=== PATIENT | male | born 1955 | race African-American/Black ===

== ENCOUNTER 2022-11-18 06:35 | Emergency (ER) | payer MEDICARE, SELFPAY ==
--- NOTE | ~2022-11-18 | CT_ITS ---
EXAMINATION: CT ABDOMEN AND PELVIS WITHOUT CONTRAST CLINICAL INFORMATION: Lower abdominal pain. COMPARISON: None available. TECHNIQUE: Multidetector volumetric imaging was performed from the superior aspect of the liver through the pubic symphysis. Sagittal and coronal reformatted images were obtained on the technologist's workstation. This CT examination was performed using dose optimization techniques as appropriate, variously including the following: *Automated exposure control *Adjustment of mA and/or kV according to patient size (this includes techniques or standardized protocols for targeted exams where dose is matched to indication/reason for exam; i.e. extremities or head) *Use of iterative reconstruction technique DLP: 454 mGy-cm FINDINGS: LUNG BASES: The visualized lung bases are unremarkable. LIVER, GALLBLADDER, AND BILIARY TREE: The noncontrast liver is normal in size and contour. No biliary ductal dilatation is present. The gallbladder is unremarkable with no evidence of radiopaque gallstones, gallbladder wall thickening, or obvious pericholecystic inflammatory changes. PANCREAS: No ductal dilatation. SPLEEN: Not enlarged. ADRENAL GLANDS: No adrenal mass. KIDNEYS AND URETERS: The kidneys are symmetric in size. No hydronephrosis or perinephric stranding. BLADDER: Diffuse wall thickening and perivesicular stranding. GASTROINTESTINAL TRACT: Submucosal fatty infiltration of the rectum. There is 2.9 x 1.2 cm soft tissue thickening along the right ischio rectal fossa/external anal sphincter. There is marked wall thickening of the sigmoid colon with pericolonic stranding and small pericolonic lymph nodes. There is marked fecal retention in the colon with possible stercoral inflammation. Appendix is within normal limits. No small bowel obstruction. ABDOMINAL WALL: Bilateral inguinal hernias containing fat. The left inguinal hernia appears larger with fluid and inflammatory changes. LYMPH NODES: No bulky abdominal or pelvic lymphadenopathy. VASCULAR: Normal caliber abdominal aorta. PELVIC VISCERA: The prostate gland and seminal vesicles are unremarkable. OSSEOUS STRUCTURES: No destructive bone lesions. CT/CT abdomen pelvis wo IV con IMPRESSION: Marked wall thickening of the sigmoid colon with pericolonic inflammatory change. This may represent colitis. Infectious and inflammatory etiologies should be considered. Follow-up imaging after treatment is advised to exclude underlying mass. Severe fecal retention in the colon with possible stercoral impaction/colitis. There is 2.9 x 1.2 cm soft tissue thickening along the right ischio rectal fossa/external anal sphincter. Diffuse wall thickening of the urinary bladder despite underdistention. Left inguinal hernia containing fat with associated fluid and inflammatory change. Advise clinical correlation for the possibility of incarceration.
[2022-11-18 06:40] VITALS: BP 122/79; PULSE 71; RESP 20; TEMP 37.1; O2SAT 97; BMI 24.2
[2022-11-18 07:02] LABS: MANUAL DIFF FLAG NO
[2022-11-18 07:04] LABS: Basophils Percent Auto 0.6 % (0-2); Eosinophils Absolute Auto 0.3 X10*3/uL (0.0-0.4); Eosinophils Percent Auto 4.1 % (0-4); Hematocrit 36.3 % (42.0-52.0); Hemoglobin 11.6 g/dl (14.0-18.0); Imm Gran Abs Auto 0.02 X10*3/uL (0.00-0.03); Imm Gran Pct Auto 0.3 % (0.0-0.4); Lymphocytes Absolute Auto 0.8 X10*3/uL (1.2-4.9); Lymphocytes Percent Auto 11.7 % (20-40); Mean Corpuscular Hemoglobin 29.4 pg (27.0-33.0); Mean Corpuscular Volume 91.9 fL (80.0-98.0); Mean Platelet Volume 8.8 fL (9.4-12.4); Monocytes Absolute Auto 0.8 X10*3/uL (0.1-1.2); Monocytes Percent Auto 12.7 % (2-11); Neutrophils Absolute Auto 4.5 x10*3/uL (2.0-8.3); Neutrophils Percent Auto 70.6 % (45-73); Platelet Count 311 X10*3/uL (160-400); Red Blood Count 3.95 X10*6/uL (4.60-5.80); Red Cell Distribution Width 13.5 % (11.0-16.0); White Blood Count 6.4 X10*3/uL (4.8-10.8)
[2022-11-18 07:20] LABS: Alanine Aminotransferase 12 U/L (0-40); Albumin Level 4.1 g/dL (3.5-5.0); Alkaline Phosphatase 70 U/L (39-117); Anion Gap 12 (12-20); Aspartate Amino Transferase 17 U/L (5-37); Bilirubin Direct 0.1 mg/dL (0.0-0.5); Bilirubin Total 0.3 mg/dL (0.0-1.0); Blood Urea Nitrogen 19 mg/dL (9-16); Calcium 9.4 mg/dL (8.4-10.2); Carbon Dioxide 23 mmol/L (22-29); Chloride 108 mmol/L (96-108); Creatinine Clr Calc Pharmacy 56.5; Estimated Glomerular Filt Rate > 60; Glucose Random 119 mg/dL (60-115); Lipase 38 U/L (8-78); Sodium 139 mmol/L (135-145); Total Protein 7.2 g/dL (6.5-8.0)
--- NOTE | 2022-11-18 11:41 | ED.ABDPAIN ---
HPI - Abdominal Pain General Chief Complaint: Abdominal Pain Stated Complaint: abdominal pain Time Seen by Provider: 11/18/22 11:40 Source: patient Limitations: no limitations History of Present Illness HPI narrative: 67-year-old male presents with abdominal pain. Symptoms started 2 weeks ago. He was in [place]. He reports having had an MRI which they found inflammation of the colon in constipation. He was prescribed ciprofloxacin and metronidazole. He has continued to have symptoms. Describes intermittent pain that is mild in nature. There is no clear relieving or exacerbating features but denies any fevers or chills. He has had soft stool but no diarrhea or constipation. Denies any blood in stools. He denies any acute urinary complaints. He has been compliant with medications. Related Data Previous Rx's Medication Instructions Recorded amoxicillin 875 mg-potassium 1 tab PO Q8H 10 days #30 tabs 11/18/22 clavulanate 125 mg tablet psyllium seed (sugar) oral powder 1 tbsp PO DAILY #1,254 grams 11/18/22 (Metamucil (sugar) oral powder) sennosides 8.6 mg tablet (senna) 8.6 mg PO BEDTIME #20 tabs 11/18/22 Allergies Allergy/AdvReac Type Severity Reaction Status Date / Time No Known Allergies Allergy Verified 11/18/22 06:38 Review of Systems Review of Systems CONSTITUTIONAL: Denies weight loss, fever and chills. HEENT: Denies changes in vision and hearing. RESPIRATORY: Denies SOB and cough. CV: Denies palpitations no CP. GI: + abdominal pain, -nausea, vomiting and diarrhea. : Denies dysuria and urinary frequency. MSK: Denies myalgia and joint pain. SKIN: Denies rash and pruritus. NEUROLOGICAL: Denies headache and syncope. PSYCHIATRIC: Denies recent changes in mood. Denies anxiety and depression. All other ROS are negative unless in HPI Physical Exam ED Vital Signs: Vital Signs - 24 hr 11/18/22 06:40 Temperature 98.7 F Pulse Rate 71 Respiratory Rate 20 Blood Pressure 122/79 Pulse Oximetry 97 Oxygen Delivery Method Room Air BMI result Body Mass Index 24.2 GEN: Well developed, no acute distress, alert, oriented HEENT: Normocephalic, atraumatic, normal external ears, nose appears normal, no oropharyngeal edema or exudates Eyes: Normal to appearance Neck: Supple, no lymphadenopathy Respiratory: Talks in complete sentences, no respiratory distress, clear to auscultation bilaterally Cardiovascular: Regular rate and rhythm, no murmurs rubs or gallops Abdomen: Soft, nontender, nondistended, no guarding, no rebound Back: No CVA tenderness Extremities: No clubbing cyanosis or edema Neurologic: No focal neurologic deficits, cranial nerves 2-12 intact, strength is 5/5 bilaterally Skin: No rash Course Course Course Narrative: The workup is complete. CT scan demonstrates evidence of colitis/diverticulitis with constipation. There is also a fat containing inguinal hernia. I discussed all reports the patient. Patient is currently on ciprofloxacin and metronidazole. Will switch him to Augmentin. Will refer him to Gastroenterology. He can follow up for any worsening or concerning symptoms. Medical Decision Making Medical Decision Making [facility] Narrative: Patient presents with lower abdominal pain. Differential diagnosis includes UTI, colitis, diverticulitis, constipation, gastroenteritis, IBD, IBS, malabsorption. Plan will be to obtain a CT scan the abdomen pelvis. Laboratory analysis and re-evaluate patient. Differential Diagnosis Differential Diagnoses: The differential diagnosis associated with the presentation includes (See above) Admission/Observation Consideration of admission/observation: Escalation of care including admission/observation considered Lab Data [facility] Lab Attestation statement: I reviewed the patient's lab results. 11/18/22 06:56 11/18/22 06:56 Labs: Lab Results 11/18/22 Range/Units 06:56 WBC 6.4 (4.8-10.8) X10*3/uL RBC 3.95 L (4.60-5.80) X10*6/uL Hgb 11.6 L (14.0-18.0) g/dl Hct 36.3 L (42.0-52.0) % MCV 91.9 (80.0-98.0) fL MCH 29.4 (27.0-33.0) pg MCHC 32.0 (31.0-36.0) g/dl RDW 13.5 (11.0-16.0) % Plt Count 311 (160-400) X10*3/uL MPV 8.8 L (9.4-12.4) fL Immature Gran % (Auto) 0.3 (0.0-0.4) % Neut % (Auto) 70.6 (45-73) % Lymph % (Auto) 11.7 L (20-40) % [place] % (Auto) 12.7 H (2-11) % Eos % (Auto) 4.1 H (0-4) % Baso % (Auto) 0.6 (0-2) % Lymph # (Auto) 0.8 L (1.2-4.9) X10*3/uL [place] # (Auto) 0.8 (0.1-1.2) X10*3/uL Eos # (Auto) 0.3 (0.0-0.4) X10*3/uL Baso # (Auto) 0.0 (0.0-0.2) X10*3/uL Abs Immat Gran (auto) 0.02 (0.00-0.03) X10*3/uL Absolute Neuts (auto) 4.5 (2.0-8.3) x10*3/uL Absolute Nucleated RBC 0.000 (0.0-0.012) X10*3/uL Nucleated RBC % (auto) 0.0 (0.0-0.2) /100WBC Sodium 139 (135-145) mmol/L Potassium 4.0 (3.3-5.1) mmol/L Chloride 108 (96-108) mmol/L Carbon Dioxide 23 (22-29) mmol/L Anion Gap 12 (12-20) BUN 19 H (9-16) mg/dL Creatinine 1.16 (0.5-1.4) mg/dL Estim Creat Clear Calc 56.5 Estimated GFR > 60 Random Glucose 119 H (60-115) mg/dL Calcium 9.4 (8.4-10.2) mg/dL Total Bilirubin 0.3 (0.0-1.0) mg/dL Direct Bilirubin 0.1 (0.0-0.5) mg/dL AST 17 (5-37) U/L ALT 12 (0-40) U/L Alkaline Phosphatase 70 (39-117) U/L Total Protein 7.2 (6.5-8.0) g/dL Albumin 4.1 (3.5-5.0) g/dL Lipase 38 (8-78) U/L Independent Interpretation I performed an independent interpretation of an: CT Scan (Abdomen pelvis: Evidence of colitis) Radiology Impression Discussion of test interpretation with radiology: I have reviewed the radiologist's reading. Radiologist Impression: CT/CT abdomen pelvis wo IV con IMPRESSION: Marked wall thickening of the sigmoid colon with pericolonic inflammatory change. This may represent colitis. Infectious and inflammatory etiologies should be considered. Follow-up imaging after treatment is advised to exclude underlying mass. Severe fecal retention in the colon with possible stercoral impaction/colitis. There is 2.9 x 1.2 cm soft tissue thickening along the right ischio rectal fossa/external anal sphincter. Diffuse wall thickening of the urinary bladder despite underdistention. Left inguinal hernia containing fat with associated fluid and inflammatory change. Advise clinical correlation for the possibility of incarceration. Dictated By: Kevon Dwyer MD Signed By: <Electronically signed by Kevon Dwyer MD in OV> 11/18/22 0958 External Record Review External record reviewed: Inpatient record, Office record, Outpatient record and Prior outpatient labs Prescription Management I considered prescription management with: Pain Medication and Antibiotic Chronic Conditions Patient?s care impacted by: Other (BPH) Discharge Plan Discharge Clinical Impression: Diverticulitis, Constipation Inguinal hernia Qualifiers: Obstruction and gangrene presence: without obstruction or gangrene Laterality: unilateral Recurrence: not specified as recurrent Qualified Code(s): K40.90 - Unilateral inguinal hernia, without obstruction or gangrene, not specified as recurrent Patient Disposition: Home, Self-Care Instructions: Diverticulitis (ED), Constipation (ED), High Fiber Diet (ED), Inguinal Hernia (ED) Prescriptions: New amoxicillin-pot clavulanate 875-125 mg tablet 1 tab PO Q8H 10 Days Qty: 30 0RF Metamucil (sugar) Powder 1 tbsp PO DAILY Qty: 1254 0RF sennosides [senna] 8.6 mg tablet 8.6 mg PO BEDTIME Qty: 20 0RF Referrals: Ney Neal MD [Physician] - 2 weeks Stand Alone Forms: Work/School Release
--- NOTE | 2022-11-18 12:48 | PC.NURSE ---
Discharge plan reviewed with patient via brick mason who verbalized understanding
== END 2022-11-18 12:49 | disposition home or self-care (01) ==
LOC: HO.ED 12:30
PROVIDERS: Emergency Provider Emergency Medicine
DX: K57.32 Diverticulitis of large intestine without perforation or abscess without bleeding (principal); K59.00 Constipation, unspecified; K40.90 Unilateral inguinal hernia, without obstruction or gangrene, not specified as recurrent; Z79.899 Other long term (current) drug therapy
CPT/HCPCS: 36415; 74176; 80048; 80076; 83690; 85025; 99282; 99284

== ENCOUNTER 2023-10-18 13:45 | Inpatient (IN) | payer MEDICARE, SELFPAY ==
--- NOTE | ~2023-10-18 | CT_ITS ---
EXAMINATION: CT ABDOMEN AND PELVIS WITH CONTRAST CLINICAL INFORMATION: Abdominal pain COMPARISON: CT abdomen and pelvis without IV contrast 11/18/2022 TECHNIQUE: Multidetector volumetric images were obtained from the superior aspect of the liver through the pubic symphysis following administration 85 mL of Omnipaque 350 intravenous contrast. Sagittal and coronal reformatted images were obtained on the technologist's workstation. Oral contrast: No This CT examination was performed using dose optimization techniques as appropriate, variously including the following: *Automated exposure control *Adjustment of mA and/or kV according to patient size (this includes techniques or standardized protocols for targeted exams where dose is matched to indication/reason for exam; i.e. extremities or head) *Use of iterative reconstruction technique DLP: 376 mGy-cm FINDINGS: LUNG BASES: The visualized lung bases are unremarkable. LIVER, GALLBLADDER, AND BILIARY TREE: The liver is normal in size, shape, and attenuation. No focal hepatic lesion or biliary ductal dilatation is present. The gallbladder is unremarkable with no evidence of radiopaque gallstones, gallbladder wall thickening, or obvious pericholecystic inflammatory changes. PANCREAS: Unremarkable. SPLEEN: Unremarkable. ADRENAL GLANDS: Unremarkable. KIDNEYS AND URETERS: The kidneys are normal in size, shape, and attenuation. No hydronephrosis, hydroureter, or calculi seen. No perinephric stranding. BLADDER: Unremarkable. GASTROINTESTINAL TRACT: There is diffuse mural thickening involving the descending, sigmoid colon and rectum with pericolonic fat stranding suggestive of descending and proctoscopy colitis. There are multiple dilated small bowel loops with air fluid level with normal caliber right ileal loop. The transition appears in the right lower quadrant on coronal image 29/81 and axial image 53/2. There is minimal thickening involving the distal ileal segment likely enteritis. ABDOMINAL WALL: There is a right mid quadrant ileostomy with periileostomy fat herniation.. LYMPH NODES: There are large left para-aortic lymph nodes measure 1.7 and 1.8 cm. Best visualized on axial image 31/2. VASCULAR: Unremarkable. PELVIC VISCERA: No free fluid. There is a small air-fluid level in distended rectum and sigmoid colon with mural thickening. There is nonspecific presacral soft tissue thickening slightly more prominent and new since the previous exam 11/18/2012 OSSEOUS STRUCTURES: No aggressive lytic or sclerotic process seen. There is mild ventral spondylosis in the dorsal spine. CT/CT abdomen pelvis w IV con IMPRESSION: Right lower quadrant ileostomy with mural thickening involving distal ileum segment likely enteritis. This causes moderate proximal small bowel obstruction with air-fluid levels. No free air or free fluid seen. There is diffuse mural thickening involving the descending, sigmoid colon and the rectum likely proctocolitis from inflammatory or infectious process. There is moderate stool distending ascending colon. Abnormal left retroperitoneal lymph nodes Fleischner guidelines were followed. Electronically signed by: Peter Byrd MD 10/18/2023 08:29 PM EDT
[2023-10-18 14:13] VITALS: BP 117/87; BP 139/93; PULSE 100; PULSE 110; RESP 18; TEMP 36.6; O2SAT 96; O2SAT 98; BMI 20.5
--- NOTE | 2023-10-18 14:29 | ED.ABDPAIN ---
HPI - Abdominal Pain General Chief Complaint: Abdominal Pain Stated Complaint: ABD PAIN, DECREASED URINE OUTPUT, FRM HOME Time Seen by Provider: 10/18/23 13:53 History of Present Illness HPI narrative: Patient is a 68-year-old male with a history of colon cancer status post resection last January in [place] was on chemotherapy up until June. Patient can not tolerate than subsequently stopped. He has a colostomy in place. Complaining of pain in the suprapubic area. Unable to urinate. No fever no chills. No chest pain. No change in medication. No vomiting or nausea. There is good output from the ostomy site. Patient is from home. No coughing or congestion or upper respiratory symptoms. Patient is visiting from [place] and is going back in about a week Related Data Previous Rx's ?Medication ?Instructions ?Recorded amoxicillin 875 mg-potassium 1 tab PO Q8H 10 days #30 tabs 11/18/22 clavulanate 125 mg tablet psyllium seed (sugar) oral powder 1 tbsp PO DAILY #1,254 grams 11/18/22 (Metamucil (sugar) oral powder) sennosides 8.6 mg tablet (senna) 8.6 mg PO BEDTIME #20 tabs 11/18/22 Allergies Allergy/AdvReac Type Severity Reaction Status Date / Time No Known Allergies Allergy Verified 10/18/23 15:01 Review of Systems Review of Systems No fever no chills no chest pain or shortness of breath Yes all other systems are reviewed and are negative PMFSH Past Medical History Attestation statement: The following information was validated with the patient. Social History Social History (System 10/18/23 @ 15:01 by Masha Rojas) Smoked in Last 30 Days: No Use of substances other than those prescribed or required for medical reasons: No Advance Directives: No Advance Directives Information Provided: Yes Do you have a plan to hurt others: No Plan Physical Exam ED Vital Signs: Vital Signs - 24 hr 10/18/23 14:13 Temperature 98 F Pulse Rate 100 Respiratory Rate 18 Blood Pressure 117/87 Pulse Oximetry 98 Oxygen Delivery Method Room Air BMI result Body Mass Index 20.5 Appearance: Alert. Oriented X3. No acute distress. Eyes: Pupils equal, round and reactive to light. ENT: Pharynx normal. Neck: Normal inspection. Neck supple. No lymph nodes noted. No crepitus CVS: Normal heart rate and rhythm. Pulses normal. Normal S1 and S2 Respiratory: No respiratory distress. Breath sounds normal. No Wheezing. No rales Abdomen: Soft and nontender. No rigidity. No distention. good BS x4 Skin: Skin warm and dry. Normal skin color. Normal skin turgor. Extremities: No lower extremity edema. Neurovascular intact to all extremities. No Lacerations. No Rash Neuro: Oriented X 3. No motor deficit. No sensory deficit. Moving all extermities. No slurred speech Medical Decision Making Medical Decision Making [facility] Narrative: History of colon cancer presents today with having abdominal pain. The pain is over the lower abdomen. Has a history of having a large prostate baseline is on prostate medicine. Also has a history of colon cancer status post resection in [place] back in January. Had chemo for 5 months but then patient elected to stop on his own. Came to [facility] to visit. Patient complaining of increasing pain unable to urinate. No vomiting. A bladder scan showed over 350 cc of urine will ask patient to urinate again. If residual was greater than [address] scan and labs ordered. Patient also on tramadol he claims he had been taking the medication for long-term Differential Diagnosis Differential Diagnoses: The differential diagnosis associated with the presentation includes Obstruction abscess perforation urinary retention Admission/Observation Consideration of admission/observation: Escalation of care including admission/observation considered Lab Data [facility] Lab Attestation statement: I reviewed the patient's lab results. 10/18/23 14:42 10/18/23 14:42 Labs: Lab Results 10/18/23 Range/Units 14:42 WBC 10.8 (4.8-10.8) X10*3/uL RBC 4.22 L (4.60-5.80) X10*6/uL Hgb 13.2 L (14.0-18.0) g/dl Hct 39.5 L (42.0-52.0) % MCV 93.6 (80.0-98.0) fL MCH 31.3 (27.0-33.0) pg MCHC 33.4 (31.0-36.0) g/dl RDW 14.0 (11.0-16.0) % Plt Count 309 (160-400) X10*3/uL MPV 7.9 L (9.4-12.4) fL Immature Gran % (Auto) 0.3 (0.0-0.4) % Neut % (Auto) 82.8 H (45-73) % Lymph % (Auto) 8.5 L (20-40) % [place] % (Auto) 7.0 (2-11) % Eos % (Auto) 1.0 (0-4) % Baso % (Auto) 0.4 (0-2) % Lymph # (Auto) 0.9 L (1.2-4.9) X10*3/uL [place] # (Auto) 0.8 (0.1-1.2) X10*3/uL Eos # (Auto) 0.1 (0.0-0.4) X10*3/uL Baso # (Auto) 0.0 (0.0-0.2) X10*3/uL Abs Immat Gran (auto) 0.03 (0.00-0.03) X10*3/uL Absolute Neuts (auto) 8.9 H (2.0-8.3) x10*3/uL Absolute Nucleated RBC 0.000 (0.0-0.012) X10*3/uL Nucleated RBC % (auto) 0.0 (0.0-0.2) /100WBC Sodium 139 (135-145) mmol/L Potassium 3.9 (3.3-5.1) mmol/L Chloride 102 (96-108) mmol/L Carbon Dioxide 28 (22-29) mmol/L Anion Gap 13 (12-20) BUN 11 (9-16) mg/dL Creatinine 0.84 (0.5-1.4) mg/dL Estim Creat Clear Calc 69.4 Estimated GFR > 60 Random Glucose 116 H (60-115) mg/dL Calcium 10.6 H D (8.4-10.2) mg/dL Total Bilirubin 0.3 (0.0-1.0) mg/dL Direct Bilirubin 0.1 (0.0-0.5) mg/dL AST 29 (5-37) U/L ALT 18 (0-40) U/L Alkaline Phosphatase 73 (39-117) U/L Total Protein 8.4 H (6.5-8.0) g/dL Albumin 4.5 (3.5-5.0) g/dL Lipase 31 (8-78) U/L Independent Historian Clinical information obtained from an independent historian. History obtained from or confirmed by: Spouse Medications Administered Discontinued Medications Generic Name Dose Route Start Last Admin Trade Name Freq PRN Reason Stop Dose Admin Hydromorphone HCl 0.5 mg 10/18/23 14:16 10/18/23 14:46 Hydromorphone Hcl 0.5 Mg/0.5 Ml Syringe IVPUSH 10/18/23 14:17 0.5 mg ONCE ONE Administration Protocol Sodium Chloride 1,000 mls @ 999 mls/hr 10/18/23 14:30 10/18/23 14:47 Ns IV 10/18/23 15:30 999 mls/hr .Q1H1M KAEL Administration Discharge Plan Discharge Clinical Impression: Abdominal pain Patient Disposition: Still a Patient Prescriptions: No Action amoxicillin-pot clavulanate 875-125 mg tablet 1 tab PO Q8H 10 Days Qty: 30 0RF Metamucil (sugar) Powder 1 tbsp PO DAILY Qty: 1254 0RF sennosides [senna] 8.6 mg tablet 8.6 mg PO BEDTIME Qty: 20 0RF Print Language: German
[2023-10-18 14:45] LABS: MANUAL DIFF FLAG NO
[2023-10-18] MEDS: HYDROmorphone HCl 0.5 MG/0.5 ML SYRINGE IVPUSH (14:46)
[2023-10-18 14:47] LABS: Basophils Percent Auto 0.4 % (0-2); Eosinophils Absolute Auto 0.1 X10*3/uL (0.0-0.4); Hematocrit 39.5 % (42.0-52.0); Hemoglobin 13.2 g/dl (14.0-18.0); Imm Gran Abs Auto 0.03 X10*3/uL (0.00-0.03); Imm Gran Pct Auto 0.3 % (0.0-0.4); Lymphocytes Absolute Auto 0.9 X10*3/uL (1.2-4.9); Lymphocytes Percent Auto 8.5 % (20-40); Mean Corpuscular HGB Conc 33.4 g/dl (31.0-36.0); Mean Corpuscular Hemoglobin 31.3 pg (27.0-33.0); Mean Corpuscular Volume 93.6 fL (80.0-98.0); Mean Platelet Volume 7.9 fL (9.4-12.4); Monocytes Absolute Auto 0.8 X10*3/uL (0.1-1.2); Neutrophils Absolute Auto 8.9 x10*3/uL (2.0-8.3); Neutrophils Percent Auto 82.8 % (45-73); Platelet Count 309 X10*3/uL (160-400); Red Blood Count 4.22 X10*6/uL (4.60-5.80); White Blood Count 10.8 X10*3/uL (4.8-10.8)
[2023-10-18] MEDS: 0.9 % Sodium Chloride 1,000 ML 999 ML IV (14:47)
[2023-10-18 15:11] LABS: Lipase 31 U/L (8-78)
[2023-10-18 15:22] LABS: Alanine Aminotransferase 18 U/L (0-40); Albumin Level 4.5 g/dL (3.5-5.0); Alkaline Phosphatase 73 U/L (39-117); Anion Gap 13 (12-20); Aspartate Amino Transferase 29 U/L (5-37); Bilirubin Direct 0.1 mg/dL (0.0-0.5); Bilirubin Total 0.3 mg/dL (0.0-1.0); Blood Urea Nitrogen 11 mg/dL (9-16); Calcium 10.6 mg/dL (8.4-10.2); Carbon Dioxide 28 mmol/L (22-29); Chloride 102 mmol/L (96-108); Creatinine Clr Calc Pharmacy 69.4; Estimated Glomerular Filt Rate > 60; Glucose Random 116 mg/dL (60-115); Potassium 3.9 mmol/L (3.3-5.1); Sodium 139 mmol/L (135-145); Total Protein 8.4 g/dL (6.5-8.0)
[2023-10-18 16:20] LABS: Appearance Urine Clear; Color Urine Dark Yellow; Glucose Urine UA Negative (Negative); Leukocyte Esterase Urine Negative (Negative); Nitrite Urine Negative (Negative); PH 6.5 (5.0-9.0); Urine Blood Negative (Negative); Urine Ketones Trace mg/dL (Negative); Urine Protein Trace mg/dL (Neg-Trace)
[2023-10-18 16:23] LABS: Bacteria Urine None Seen (None Seen); Hyaline Casts Urine 0-2 /LPF (0-2); RBC Urine 0-2 /HPF (0-2); Squamous Epithelial Cell Urine 0-2 /HPF (0-2); WBC Urine 0-5 /HPF (0-5)
--- NOTE | 2023-10-18 16:25 | PC.NURSE ---
pre void bladder scan 376
--- NOTE | 2023-10-18 16:26 | PC.NURSE ---
pt able to void a small amount 80cc - post void visidual 207
[2023-10-18] MEDS: Diatrizoate Meglumine, Sodium 30 ML SOLUTION PO (17:05)
[2023-10-18] MEDS: iohexoL 350 MG/ML 100 ML INFUS..BTL IV (17:05)
[2023-10-18 17:25] VITALS: BP 127/83; PULSE 99; RESP 16; TEMP 36.7; O2SAT 99
[2023-10-18 22:00] VITALS: BP 122/81; PULSE 95; RESP 16; TEMP 37.2; O2SAT 97
[2023-10-19] VITALS (10 sets, daily range): BP systolic 118–140; BP diastolic 72–87; PULSE 80–97; RESP 15–18; TEMP 36.5–37.3; O2SAT 97–98
[2023-10-19 00:35] LABS: Lactic Acid 1.3 mmol/L (0.5-2.0)
[2023-10-19] MEDS: ondansetron HCL 4 MG/2 ML VIAL IVPUSH ×2 (00:50→09:50)
[2023-10-19] MEDS: Morphine Sulfate 4 MG/ML CARTRIDGE IVPUSH ×5 (00:50→21:43)
[2023-10-19] MEDS: 0.9 % Sodium Chloride 1,000 ML 999 ML IV (00:50)
--- NOTE | 2023-10-19 01:16 | P.HPHOSP_ITS ---
History of Present Illness Date of Service: 10/19/23 Chief Complaint: Abdominal pain This is a 68-year-old male with pertinent history of colon cancer status post colostomy, BPH who presents to the emergency department for evaluation of abdominal pain. Patient states he stopped chemotherapy in June of 2023 as he could not tolerate chemotherapy. Patient is supposed to take a medication for his enlarged prostate but is not taking it. Patient is complaining of lower abdominal discomfort that has been ongoing for a while but worsened on the day of presentation, constant, nonradiating and without any relieving factors. Patient tried Tylenol and tramadol at home but no relief. Also had difficulty with urination. Denies nausea or vomiting. Reduced p.o. intake due to abdominal pain. Patient is visiting from [place]. No chest pain, palpitations, shortness of breath. In the emergency department, imaging with enteritis. Also concerning for small bowel obstruction. Holguin catheter was placed in the ER. Review of Systems 2 Constitutional: Constitutional: Reports poor appetite Cardiovascular: Cardiovascular: Reports no additional cardiovascular complaints Respiratory: Respiratory: Reports no additional respiratory complaints Gastrointestinal: Gastrointestinal: Reports abdominal pain Genitourinary: Genitourinary: Reports difficulty urinating [facility] Medical History BPH (benign prostatic hyperplasia) Colon cancer Pertinent family history: No family history of early CAD Social History Smoked in Last 30 Days: No Use of substances other than those prescribed or required for medical reasons: No Advance Directives: No Advance Directives Information Provided: Yes Do you have a plan to hurt others: No Plan Meds Allergies Allergy/AdvReac Type Severity Reaction Status Date / Time No Known Allergies Allergy Verified 10/18/23 15:01 Physical Exam 2 Vital Signs and Narrative: Vital Signs: Last Vital Signs Temp 98.7 F 10/19/23 00:47 Pulse 97 10/19/23 00:47 Resp 15 10/19/23 00:50 BP 125/80 10/19/23 00:47 Pulse Ox 97 10/19/23 00:47 O2 Del Method Room Air 10/19/23 00:47 BMI result Body Mass Index 20.5 Middle-aged male lying in bed in no distress Neck supple, no JVD Regular rate and rhythm, S1-S2 heard Regular breath sounds bilaterally, no wheezing or crackles appreciated Abdomen with lower abdominal tenderness, no rigidity, no rebound tenderness ; colostomy in place Patient is awake, alert and oriented to self, place, time and person ; no focal motor deficit Psych: Normal mood No pedal edema Results Labs 10/18/23 14:42 10/18/23 14:42 Labs: Laboratory Results - last 24 hr 10/18/23 10/18/23 10/19/23 14:42 16:14 00:22 MCV 93.6 MCH 31.3 MCHC 33.4 RDW 14.0 Plt Count 309 MPV 7.9 L Immature Gran % (Auto) 0.3 Neut % (Auto) 82.8 H Lymph % (Auto) 8.5 L [place] % (Auto) 7.0 Eos % (Auto) 1.0 Baso % (Auto) 0.4 Lymph # (Auto) 0.9 L [place] # (Auto) 0.8 Eos # (Auto) 0.1 Baso # (Auto) 0.0 Abs Immat Gran (auto) 0.03 Absolute Neuts (auto) 8.9 H Absolute Nucleated RBC 0.000 Nucleated RBC % (auto) 0.0 Anion Gap 13 Estim Creat Clear Calc 69.4 Estimated GFR > 60 Random Glucose 116 H Lactic Acid 1.3 Calcium 10.6 H D Total Bilirubin 0.3 Direct Bilirubin 0.1 AST 29 ALT 18 Alkaline Phosphatase 73 Total Protein 8.4 H Albumin 4.5 Lipase 31 Urine Color Dark Yellow Urine Appearance Clear Urine pH 6.5 Ur Specific [place] 1.020 Urine Protein Trace Urine Glucose (UA) Negative Urine Ketones Trace Urine Blood Negative Urine Nitrite Negative Ur Leukocyte Esterase Negative Urine RBC 0-2 Urine WBC 0-5 Ur Squamous Epith Cells 0-2 Urine Bacteria None Seen Hyaline Casts 0-2 Imaging Radiologist's Impressions: Impressions Abdomen/Pelvis CT 10/18/23 17:12 IMPRESSION: Right lower quadrant ileostomy with mural thickening involving distal ileum segment likely enteritis. This causes moderate proximal small bowel obstruction with air-fluid levels. No free air or free fluid seen. There is diffuse mural thickening involving the descending, sigmoid colon and the rectum likely proctocolitis from inflammatory or infectious process. There is moderate stool distending ascending colon. Abnormal left retroperitoneal lymph nodes Fleischner guidelines were followed. Electronically signed by: Peter Rochelle MD 10/18/2023 08:29 PM EDT RP Assessment and Plan (1) Abdominal pain: Status: Acute (2) Difficulty urinating: Status: Acute Plan This is a 68-year-old male with pertinent history of colon cancer status post colostomy, BPH who presents to the emergency department for evaluation of abdominal pain. #. Abdominal pain, intractable with reduced p.o. intake: Will admit patient with IV opioids p.r.n. for analgesia. Clear liquid diet and advance as tolerated. Imaging with enteritis and moderate proximal SBO. Consulted General surgery, appreciate assistance. #. Difficulty urinating: Holguin catheter placed in the ER. Noncompliant with medication for enlarged prostate as per the patient. Initiating Flomax. Voiding trial prior to discharge. DVT prophylaxis: Lovenox Full code Quality Stroke Does the patient have a stroke diagnosis?: No VTE Prior VTE?: No VTE Risk Level:: Medical - moderate - high VTE Device Contraindication: Treatment Not Indicated VTE Drug Contraindication: N/A - Med Ordered
[2023-10-19 01:48] LABS: CDiff Gene PCR NEGATIVE (Negative)
[2023-10-19] MEDS: Tamsulosin HCL 0.4 MG CAPSULE PO ×2 (02:29→21:39)
[2023-10-19] MEDS: Calcium Carbonate 750 MG TAB.CHEW PO ×2 (04:48→18:53)
--- NOTE | 2023-10-19 05:10 | PC.NURSE ---
Patient is alert and oriented x3, VSS. Patient denies nausea, vomiting. He complaints of heartburn and 7/10 pain in lower abdomen. Patient medicated medicated with Tums 750 mg PO and Morphine 4 mg IV push. Patient is independent with ostomy appliance care. Patient emptied ostomy pouch with approximately 300 mL of yellow, watery output. F/C patient draining yellow, clear urine. Patient is on clear liquid diet, he verbalized understanding. Plan of care ongoing.
[2023-10-19 05:51] LABS: MANUAL DIFF FLAG NO
[2023-10-19 05:56] LABS: Basophils Absolute Auto 0.1 X10*3/uL (0.0-0.2); Basophils Percent Auto 0.5 % (0-2); Eosinophils Absolute Auto 0.1 X10*3/uL (0.0-0.4); Eosinophils Percent Auto 0.9 % (0-4); Hematocrit 36.5 % (42.0-52.0); Hemoglobin 12.1 g/dl (14.0-18.0); Imm Gran Abs Auto 0.01 X10*3/uL (0.00-0.03); Imm Gran Pct Auto 0.1 % (0.0-0.4); Lymphocytes Absolute Auto 0.7 X10*3/uL (1.2-4.9); Lymphocytes Percent Auto 7.2 % (20-40); Mean Corpuscular HGB Conc 33.2 g/dl (31.0-36.0); Mean Corpuscular Hemoglobin 31.3 pg (27.0-33.0); Mean Corpuscular Volume 94.3 fL (80.0-98.0); Mean Platelet Volume 8.3 fL (9.4-12.4); Monocytes Absolute Auto 1.1 X10*3/uL (0.1-1.2); Monocytes Percent Auto 11.4 % (2-11); Neutrophils Percent Auto 79.9 % (45-73); Platelet Count 304 X10*3/uL (160-400); Red Blood Count 3.87 X10*6/uL (4.60-5.80); Red Cell Distribution Width 14.2 % (11.0-16.0)
[2023-10-19 06:11] LABS: Anion Gap 14 (12-20); Blood Urea Nitrogen 14 mg/dL (9-16); Calcium 9.7 mg/dL (8.4-10.2); Carbon Dioxide 25 mmol/L (22-29); Chloride 105 mmol/L (96-108); Creatinine Clr Calc Pharmacy 64.7; Estimated Glomerular Filt Rate > 60; Glucose Random 131 mg/dL (60-115); Potassium 4.4 mmol/L (3.3-5.1); Sodium 140 mmol/L (135-145)
--- NOTE | 2023-10-19 08:48 | PC.NURSE ---
Pt eating meal tray, denies complaints.
--- NOTE | 2023-10-19 09:13 | PC.NURSE ---
Surgery at bedside to evaluate pt.
--- NOTE | 2023-10-19 09:24 | PM.CNGS ---
History of Present Illness Consult details Consult date: 10/19/23 <PRICILA Padron Last Filed: 10/19/23 09:44> Reason for consult: abdominal pain <PRICILA Padron Last Filed: 10/19/23 09:44> Narrative: Mr. Artis is a 68-year-old armenian speaking male with PMH significant for colon cancer with ileostomy in place, BPH who presents to the ED for evaluation of abdominal pain. He reports this pain is mostly in the central lower abdomen and has been present for months and however he did develop some mild upper abdominal discomfort on the day of presention. From patient history, it sounds like resection was attempted in [place] however they were unable to and therefore loop ileostomy was performed as he was obstructing. He was undergoing chemotherapy in [place] however stopped in June of 2023 as he could not tolerate it. He also reports some difficulty with urination and is supposed to take a medication for his enlarged prostate but has not been taking it. He reports poor oral intake due to his pain and weight loss but denies nausea or vomiting. His ostomy has been functioning without change in output. Work up in the ED included CBC, BMP, LFTs which were WNL. CT scan abd pelvis showed distended stomach, dilated small bowel loops with thickening and diffuse mural thickening involving the descending, sigmoid colon and rectum with pericolonic fat stranding. <PRICILA Padron Last Filed: 10/19/23 09:44> Review of Systems Constitutional: Constitutional: Denies chills and Denies fever(s) <PRICILA Padron Last Filed: 10/19/23 09:44> ENT: Denies dizziness <PRICILA Padron Last Filed: 10/19/23 09:44> Cardiovascular: Cardiovascular: Denies chest pain and Denies dyspnea <PRICILA Padron Last Filed: 10/19/23 09:44> Respiratory: Respiratory: Denies dyspnea <PRICILA Padron Last Filed: 10/19/23 09:44> Gastrointestinal: Gastrointestinal: Reports as per HPI, Denies melena and Denies hematochezia <Natacha Lopez PA-C Last Filed: 10/19/23 09:44> Genitourinary: Genitourinary: Reports as per HPI <Natacha Lopez PA-C Last Filed: 10/19/23 09:44> Integumentary/Breasts: Skin/Breast: Denies rash and Denies jaundice <Natacha Lopez PA-C Last Filed: 10/19/23 09:44> Neurologic: Denies dizziness <Natacha Lopez PA-C Last Filed: 10/19/23 09:44> PMF Past Medical History Medical History: Medical History (Updated 10/19/23 @ 13:07 by Rowan Sanchez MD) BPH (benign prostatic hyperplasia) Colon cancer <Natacha Lopez PA-C Last Filed: 10/19/23 09:44> Surgical History Surgical History: Surgical History (Updated 10/19/23 @ 13:07 by Rowan Sanchez MD) History of ileostomy <Natacha Lopez PA-C Last Filed: 10/19/23 09:44> Social History Social History: Social History Smoked in Last 30 Days: No Use of substances other than those prescribed or required for medical reasons: No Advance Directives: No Advance Directives Information Provided: Yes Do you have a plan to hurt others: No Plan service: No <Natacha Lopez PA-C Last Filed: 10/19/23 09:44> Meds Allergies/Adverse reactions: Allergies Allergy/AdvReac Type Severity Reaction Status Date / Time No Known Allergies Allergy Verified 10/18/23 15:01 <PRICILA Padron Last Filed: 10/19/23 09:44> Active Medications: Current Medications Acetaminophen (Acetaminophen 325 Mg Tablet) 650 mg PO Q6H PRN PRN Reason: Pain, Mild (Pain Scale 1-3), fever or headache Calcium Carbonate (Calcium Carbonate 750 Mg Tab.Chew) 750 mg PO Q4H PRN PRN Reason: Heartburn Last Admin: 10/19/23 04:48 Dose: 750 mg Enoxaparin Sodium (Enoxaparin Sodium 40 Mg/0.4 Ml Syringe) 40 mg SUBCUT Q24H KAEL Magnesium Hydroxide (Milk Of Magnesia 30 Ml Oral.Susp) 30 ml PO DAILY PRN PRN Reason: Constipation Melatonin (Melatonin 3 Mg Tablet) 6 mg PO BEDTIME PRN PRN Reason: Insomnia Morphine Sulfate (Morphine Sulfate 4 Mg/Ml Cartridge) 4 mg IVPUSH Q6H PRN; Protocol PRN Reason: Pain, Severe (Pain Scale 7-10) Last Admin: 10/19/23 04:45 Dose: 4 mg Ondansetron HCl (Ondansetron Hcl 4 Mg/2 Ml Vial) 4 mg IVPUSH Q8H PRN PRN Reason: Nausea and Vomiting Sodium Chloride (0.9 % Sodium Chloride Flush 3 Ml Syringe) 3 ml IVFLUSH QSHIFT KAEL Tamsulosin HCl (Tamsulosin Hcl 0.4 Mg Capsule) 0.4 mg PO BEDTIME KAEL Last Admin: 10/19/23 02:29 Dose: 0.4 mg <PRICILA Padron Last Filed: 10/19/23 09:44> Home medications: Home Medications ?Medication ?Instructions ?Recorded ?Confirmed ?Last Taken ?Type tamsulosin 0.4 mg capsule 0.4 mg PO BEDTIME 10/19/23 10/19/23 10/18/23 History tramadol 37.5 mg-acetaminophen 325 2 tab PO Q6H PRN Pain 10/19/23 10/19/23 10/18/23 History mg tablet <PRICILA Padron Last Filed: 10/19/23 09:44> Physical Exam Vital Signs: Vital Signs: Last Vital Signs Temp 99.1 F 10/19/23 06:15 Pulse 89 10/19/23 06:15 Resp 16 10/19/23 06:15 BP 118/72 10/19/23 06:15 Pulse Ox 98 10/19/23 06:15 O2 Del Method Room Air 10/19/23 06:15 BMI result Body Mass Index 20.5 <PRICILA Padron Last Filed: 10/19/23 09:44> Const: General: comfortable, no acute distress and alert <PRICILA Padron Last Filed: 10/19/23 09:44> Nutritional Appearance: thin <Natacha VelezdeauRADUNyasia Lopez Last Filed: 10/19/23 09:44> Orientation/consciousness: patient oriented x3 <Natacha VelezdeauRADUNyasia Lopez Last Filed: 10/19/23 09:44> Neck: Neck: No JVD <Natacha VelezdeauRADUNyasia Lopez Last Filed: 10/19/23 09:44> Resp: Effort & Inspection: normal respiratory effort <Natacha VelezdeauRADUNyasia Lopez Last Filed: 10/19/23 09:44> GI: Other: ileostomy appliance in place at right midabdomen, filled with liquid stool and gas mild LLQ/suprapubic tenderness <Natacha ReyRADU barriosNyasia Lopez Last Filed: 10/19/23 09:44> Palpation (GI): Soft to palpation, no guarding and No Rebound tenderness present <Natacha VelezRADU lojaNyasia Lopez Last Filed: 10/19/23 09:44> Skin: General skin exam: no rashes or lesions noted <Natacha Reybodeau PRICILA Lopez Last Filed: 10/19/23 09:44> Neuro: General: patient oriented x3 and moves all extremities <Natacha Reydenis PRICILA Lopez Last Filed: 10/19/23 09:44> Results Labs Result diagrams: 10/19/23 05:30 10/19/23 05:30 <Natacha Reydenis PRICILA Lopez Last Filed: 10/19/23 09:44> Labs: Abnormal lab results 10/18/23 10/19/23 Range/Units 14:42 05:30 RBC 4.22 L 3.87 L (4.60-5.80) X10*6/uL Hgb 13.2 L 12.1 L (14.0-18.0) g/dl Hct 39.5 L 36.5 L (42.0-52.0) % MPV 7.9 L 8.3 L (9.4-12.4) fL Neut % (Auto) 82.8 H 79.9 H (45-73) % Lymph % (Auto) 8.5 L 7.2 L (20-40) % [place] % (Auto) 11.4 H (2-11) % Lymph # (Auto) 0.9 L 0.7 L (1.2-4.9) X10*3/uL Absolute Neuts (auto) 8.9 H (2.0-8.3) x10*3/uL Random Glucose 116 H 131 H (60-115) mg/dL Calcium 10.6 H D (8.4-10.2) mg/dL Total Protein 8.4 H (6.5-8.0) g/dL Short CBC 10/18/23 10/19/23 Range/Units 14:42 05:30 WBC 10.8 10.0 (4.8-10.8) X10*3/uL Hgb 13.2 L 12.1 L (14.0-18.0) g/dl Hct 39.5 L 36.5 L (42.0-52.0) % Plt Count 309 304 (160-400) X10*3/uL BMP 10/18/23 10/19/23 14:42 05:30 Sodium 139 140 Potassium 3.9 4.4 Chloride 102 105 Carbon Dioxide 28 25 BUN 11 14 Creatinine 0.84 0.90 Calcium 10.6 H D 9.7 D Liver Function 10/18/23 Range/Units 14:42 Total Bilirubin 0.3 (0.0-1.0) mg/dL Direct Bilirubin 0.1 (0.0-0.5) mg/dL AST 29 (5-37) U/L ALT 18 (0-40) U/L Alkaline Phosphatase 73 (39-117) U/L Albumin 4.5 (3.5-5.0) g/dL Urine 10/18/23 Range/Units 16:14 Urine Color Dark Yellow Urine Appearance Clear Urine pH 6.5 (5.0-9.0) Ur Specific [place] 1.020 (1.005-1.025) Urine Protein Trace (Neg-Trace) mg/dL Urine Glucose (UA) Negative (Negative) mg/dL All other labs normal. <Natacha Lopez PA-C - Last Filed: 10/19/23 09:44> Imaging Abdomen CT scan report/results: report reviewed and image reviewed <Natacha Lopez PA-C - Last Filed: 10/19/23 09:44> Assessment and Plan (1) Enteritis: Status: Acute <Natacha Lopez PA-C - Last Filed: 10/19/23 09:44> (2) Colon cancer: Status: Acute <Natacha Lopez PA-C - Last Filed: 10/19/23 09:44> Patient apparently had rectal cancer last year Underwent ileostomy after rectal cancer could not be resected in [place] He did not finish neoadjuvant chemotherapy Complains of lower abdominal pain Likely to have advanced rectal cancer from before Need to re-evaluate with colonoscopy Will need to have MRI for staging Check CEA levels Stoma otherwise functioning well Clinically obstructed We will follow Seen and examined independently <Rajinder Barraza MD - Last Filed: 10/19/23 16:53> 68-year-old male with PMH significant for colon cancer with ileostomy in place, BPH presenting with lower abdominal pain for months with acute development of upper abdominal pain. CT scan shows thickening of the small bowel and dilated loops suggestive of enteritis with concern for obstruction. He however is clinically not obstructed as has good ileostomy output without N/V, abdominal distention. Can continue clear liquids for now as tolerated. Abdominal pain seems more secondary to the locally advancing cancer itself. He had been undergoing chemo in [place] however stopped this due to side effects. Recommend oncology consult to see if he would benefit from radiation. Will obtain CEA. Will continue to follow. <Natacha Lopez PA-C - Last Filed: 10/19/23 09:44> Procedures Date of Service Date of Service: 10/19/23 <Natacha Lopez PA-C - Last Filed: 10/19/23 09:44> 10/19/23 <Rajinder Barraza MD - Last Filed: 10/19/23 16:53>
[2023-10-19] MEDS: 0.9 % Sodium Chloride Flush 3 ML SYRINGE IVFLUSH ×3 (09:49→23:43)
[2023-10-19] MEDS: Enoxaparin Sodium 40 MG/0.4 ML SYRINGE SUBCUT (09:49)
--- NOTE | 2023-10-19 09:51 | PHA.MEDREC ---
Addendum entered by Kristan Yeung RPh 10/19/23 10:02: reviewed by [facility]. Original Note: Pharmacy Consult ? Medication Reconciliation Pharmacy has completed the medication reconciliation. 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 Got help with calling pharmacy and they were able to confirm the patient got Tramadol-Acetaminophen 37.5mg/325mg taking 2 tabs every 6 hours, and Tamsulosin 0.4mg (for prostate) 1 daily at bedtime filled with them October 03. The patient states he took the medication yesterday.
--- NOTE | 2023-10-19 11:51 | PM.EVENT ---
Event Note Date of Service: 10/19/23 Event Note: Day hospitalist update S: c/o abd pain; no N/V O: Temp Pulse Resp BP Pulse Ox O2 Del Method 98.2 F 87 16 123/72 97 Room Air 10/19/23 09:42 10/19/23 09:42 10/19/23 09:42 10/19/23 09:42 10/19/23 09:42 10/19/23 09:42 Gen: in no acute distress HEENT: sclera anicteric, moist mucus membranes Neck: supple Lungs: clear to auscultation bilaterally Heart: regular rate and rhythm, no murmurs Abd: soft, mild tenderness, nondistended, ileostomy RLQ with gas/liquid Ext: no edema Skin: warm/well-perfused Neuro: alert and oriented x3, no focal findings Psych: appropriate affect Laboratory Results - last 24 hr 10/18/23 10/18/23 10/19/23 14:42 16:14 00:22 WBC 10.8 RBC 4.22 L Hgb 13.2 L Hct 39.5 L MCV 93.6 MCH 31.3 MCHC 33.4 RDW 14.0 Plt Count 309 MPV 7.9 L Immature Gran % (Auto) 0.3 Neut % (Auto) 82.8 H Lymph % (Auto) 8.5 L [place] % (Auto) 7.0 Eos % (Auto) 1.0 Baso % (Auto) 0.4 Lymph # (Auto) 0.9 L [place] # (Auto) 0.8 Eos # (Auto) 0.1 Baso # (Auto) 0.0 Abs Immat Gran (auto) 0.03 Absolute Neuts (auto) 8.9 H Absolute Nucleated RBC 0.000 Nucleated RBC % (auto) 0.0 Sodium 139 Potassium 3.9 Chloride 102 Carbon Dioxide 28 Anion Gap 13 BUN 11 Creatinine 0.84 Estim Creat Clear Calc 69.4 Estimated GFR > 60 Random Glucose 116 H Lactic Acid 1.3 Calcium 10.6 H D Total Bilirubin 0.3 Direct Bilirubin 0.1 AST 29 ALT 18 Alkaline Phosphatase 73 Total Protein 8.4 H Albumin 4.5 Lipase 31 Urine Color Dark Yellow Urine Appearance Clear Urine pH 6.5 Ur Specific [place] 1.020 Urine Protein Trace Urine Glucose (UA) Negative Urine Ketones Trace Urine Blood Negative Urine Nitrite Negative Ur Leukocyte Esterase Negative Urine RBC 0-2 Urine WBC 0-5 Ur Squamous Epith Cells 0-2 Urine Bacteria None Seen Hyaline Casts 0-2 C. difficile Tox B Gene 10/19/23 10/19/23 00:57 05:30 WBC 10.0 RBC 3.87 L Hgb 12.1 L Hct 36.5 L MCV 94.3 MCH 31.3 MCHC 33.2 RDW 14.2 Plt Count 304 MPV 8.3 L Immature Gran % (Auto) 0.1 Neut % (Auto) 79.9 H Lymph % (Auto) 7.2 L [place] % (Auto) 11.4 H Eos % (Auto) 0.9 Baso % (Auto) 0.5 Lymph # (Auto) 0.7 L [place] # (Auto) 1.1 Eos # (Auto) 0.1 Baso # (Auto) 0.1 Abs Immat Gran (auto) 0.01 Absolute Neuts (auto) 8.0 Absolute Nucleated RBC 0.000 Nucleated RBC % (auto) 0.0 Sodium 140 Potassium 4.4 Chloride 105 Carbon Dioxide 25 Anion Gap 14 BUN 14 Creatinine 0.90 Estim Creat Clear Calc 64.7 Estimated GFR > 60 Random Glucose 131 H Lactic Acid Calcium 9.7 D Total Bilirubin Direct Bilirubin AST ALT Alkaline Phosphatase Total Protein Albumin Lipase Urine Color Urine Appearance Urine pH Ur Specific [place] Urine Protein Urine Glucose (UA) Urine Ketones Urine Blood Urine Nitrite Ur Leukocyte Esterase Urine RBC Urine WBC Ur Squamous Epith Cells Urine Bacteria Hyaline Casts C. difficile Tox B Gene NEGATIVE A/P: d1 68yo M with colon CA s/p ileostomy [intolerant of chemotherapy], BPH presenting with abd pain; admitted for enteritis/pSBO enteritis/pSBO - Surgery consulted, has good ileostomy output without abd distention, continue clear liquid diet, stool studies colon CA - Oncology consult to see if he would benefit from radiation, CEA pending BPH with urinary retention - Holguin placed, start tamsulosin VTE ppx - enoxaparin dispo - eventual home In my clinical judgment, the patient requires continued hospitalization for the following reasons: pSBO, IV fluids Time Spent With Patient Time: Total time managing care of this patient today _35___ minutes.
--- NOTE | 2023-10-19 11:57 | PC.NURSE ---
Pt asleep on stretcher with respirations equal and unlabored.
--- NOTE | 2023-10-19 13:07 | P.CNHO_ITS ---
Subjective - Subjective Chief complaint: Abdominal pain Patient: new to practice Consult date: 10/19/23 Requesting Physician: Hospitalist team Primary Care Provider: Unknown Physician HPI - Consult Narrative Reason for consult: Probable metastatic colon cancer Narrative: Brent Artis is a 68 year old male who is being admitted for small- bowel obstruction. He was diagnosed with colon cancer last year in [place], as per his history they attempted surgery to remove cancer but it was inoperable and therefore they closed him up with a colostomy in place. He received chemotherapy, 10 cycles, last treatment was in June 2023. He says he did not want to receive anymore treatment because he could not tolerate the side effects. 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 He presented to emergency department today because of complaints of abdominal pain loss of appetite and weight loss. He denies nausea, emesis or fever. He wants to transfer his care to [place]. Review of Systems - Constitutional Reports as per HPI, Denies night sweats, Reports poor appetite, Reports weakness - Cardiovascular Reports no additional cardiovascular complaints - Respiratory Reports no additional respiratory complaints - Neurologic Denies dizziness [facility] Medical History: Medical History (Last Reviewed 10/19/23 @ 01:20 by Kristin Currie MD) BPH (benign prostatic hyperplasia) Colon cancer Surgical History: Surgical History (Last Updated 10/19/23 @ 09:33 by Natacha Lopez PA-C) History of ileostomy Social History: Social History (Last Reviewed 10/19/23 @ 01:20 by Kristin Currie MD) Alcohol History Details: 1. How often do you have a drink containing alcohol?: a. Never Tobacco History: Smoked in Last 30 Days: No Substance Use History: Use of substances other than those prescribed or required for medical reasons : No Advance Directives: Advance Directives: No Advance Directives Information Provided: Yes Homicidal Assessment: Do you have a plan to hurt others: No Plan Occupation Assessmet: service: No Home Medications and Allergies Current Medications: Current Medications Acetaminophen (Acetaminophen 325 Mg Tablet) 650 mg PO Q6H PRN PRN Reason: Pain, Mild (Pain Scale 1-3), fever or headache Calcium Carbonate (Calcium Carbonate 750 Mg Tab.Chew) 750 mg PO Q4H PRN PRN Reason: Heartburn Last Admin: 10/19/23 04:48 Dose: 750 mg Enoxaparin Sodium (Enoxaparin Sodium 40 Mg/0.4 Ml Syringe) 40 mg SUBCUT Q24H [facility] Last Admin: 10/19/23 09:49 Dose: 40 mg Magnesium Hydroxide (Milk Of Magnesia 30 Ml Oral.Susp) 30 ml PO DAILY PRN PRN Reason: Constipation Melatonin (Melatonin 3 Mg Tablet) 6 mg PO BEDTIME PRN PRN Reason: Insomnia Morphine Sulfate (Morphine Sulfate 4 Mg/Ml Cartridge) 4 mg IVPUSH Q6H PRN; Protocol PRN Reason: Pain, Severe (Pain Scale 7-10) Last Admin: 10/19/23 09:50 Dose: 4 mg Ondansetron HCl (Ondansetron Hcl 4 Mg/2 Ml Vial) 4 mg IVPUSH Q8H PRN PRN Reason: Nausea and Vomiting Last Admin: 10/19/23 09:50 Dose: 4 mg Sodium Chloride (0.9 % Sodium Chloride Flush 3 Ml Syringe) 3 ml IVFLUSH QSHIFT [facility] Last Admin: 10/19/23 09:49 Dose: 3 ml Tamsulosin HCl (Tamsulosin Hcl 0.4 Mg Capsule) 0.4 mg PO BEDTIME [facility] Home Medications ?Medication ?Instructions ?Recorded ?Confirmed ?Type tamsulosin 0.4 mg capsule 0.4 mg PO BEDTIME 10/19/23 10/19/23 History tramadol 37.5 mg-acetaminophen 325 2 tab PO Q6H PRN Pain 10/19/23 10/19/23 History mg tablet Allergies Allergy/AdvReac Type Severity Reaction Status Date / Time No Known Allergies Allergy Verified 10/18/23 15:01 Physical Exam Vital signs: Vital Signs Temp 98.2 F 10/19/23 09:42 Pulse 87 10/19/23 09:42 Resp 16 10/19/23 09:42 BP 123/72 10/19/23 09:42 Pulse Ox 97 10/19/23 09:42 O2 Del Method Room Air 10/19/23 09:42 Intake & Output 10/18/23 10/19/23 10/19/23 18:59 06:59 18:59 Intake Total 1000 / 1999 1000 / 2000 Output Total 80 / 980 900 / 980 Balance 920 / 1020 100 / 1020 Urine Output (Average ml/kg/hr) 0.12 0.80 Intake: Intake, IV Amount 1000 / 1999 1000 / 2000 0.9 % Sodium Chloride 1,000 ml 999 @ 999 mls/hr IV .Q1H1M ONE Rx#: [id number] Output: Output, Urine Amount 80 / 80 Output, Stool Amount 350 / 350 Output, Urine Amount (Catheter) 550 / 550 Urethral 550 / 550 Other: Urine Urinal Urine Color Yellow Stool Ostomy Stool Amount Moderate Stool Color Yellow Stool Consistency Liquid Weight 57.5 kg Weight 57.5 kg - Constitutional Present: no acute distress - Routine HEENT Exam Head: Present: normal inspection, CSF otorrhea Eye: Present: PERRL - Routine Neck Exam Present: supple. Absent: lymphadenopathy - Routine Respiratory Exam Present: CTAB - Routine Cardiovascular Exam Cardiovascular: Present: S1, S2 - Routine Abdominal Exam Present: soft. Absent: mass Comments: Colostomy in the right lower quadrant with air - Routine Extremities Exam Present: pulses intact - Routine Skin Exam Present: intact - Routine Neurological Exam Present: alert, oriented X3 Hem/Onc Consult Result - Labs CBC & Chem 7: 10/19/23 05:30 10/19/23 05:30 Labs: Short CBC 10/18/23 10/19/23 Range/Units 14:42 05:30 WBC 10.8 10.0 (4.8-10.8) X10*3/uL Hgb 13.2 L 12.1 L (14.0-18.0) g/dl Hct 39.5 L 36.5 L (42.0-52.0) % Plt Count 309 304 (160-400) X10*3/uL BMP 10/18/23 10/19/23 14:42 05:30 Sodium 139 140 Potassium 3.9 4.4 Chloride 102 105 Carbon Dioxide 28 25 BUN 11 14 Creatinine 0.84 0.90 Calcium 10.6 H D 9.7 D Liver Function 10/18/23 Range/Units 14:42 Total Bilirubin 0.3 (0.0-1.0) mg/dL Direct Bilirubin 0.1 (0.0-0.5) mg/dL AST 29 (5-37) U/L ALT 18 (0-40) U/L Alkaline Phosphatase 73 (39-117) U/L Albumin 4.5 (3.5-5.0) g/dL Urine 10/18/23 Range/Units 16:14 Urine Color Dark Yellow Urine Appearance Clear Urine pH 6.5 (5.0-9.0) Ur Specific [place] 1.020 (1.005-1.025) Urine Protein Trace (Neg-Trace) mg/dL Urine Glucose (UA) Negative (Negative) mg/dL Assessment and Plan Patient Active problem list reviewed?: Yes (1) Colon cancer Status: Acute Assessment and plan: 1. This is a 68-year-old man with history of colon cancer status post colostomy and chemotherapy at [place] presenting now with small bowel obstruction. As per his report, he underwent laparotomy but is tumor could not be resected and he was given a colostomy. Following this he received about 10 cycles of what appears to be FOLFOX chemotherapy until June 2023. He was tolerating this poorly and he decided to stop treatment. He does not have any records with him, this will have to be requested from [place]. He presented to [facility] with complaints of abdominal pain, CT abdomen/pelvis with contrast performed 10/18/2023 showed- Right lower quadrant ileostomy with mural thickening involving distal ileum segment likely enteritis. This causes moderate proximal small bowel obstruction with air-fluid levels. No free air or free fluid seen. There is diffuse mural thickening involving the descending, sigmoid colon and the rectum likely proctocolitis from inflammatory or infectious process. There is moderate stool distending ascending colon. Abnormal left retroperitoneal lymph nodes. He appears to have enteritis in the right colon/terminal ileum. He also has abnormal lymphadenopathy and thickening in sigmoid and rectal area. CEA is over 800 NG/mL. I recommend GI consultation. I have asked patient to give the name of the hospital and treating physician in [place] so records can be obtained. He will need biopsy and molecular studies if he wants to undergo treatment here. I thank you for this consultation. - Time Spent With Patient Time Spent with Patient (in minutes): 35 Additional Coding: - Additional E/M codes Complex E/M visit Add On: CPT G2211
--- NOTE | 2023-10-19 13:27 | MHC.CM.PN ---
pt lives with sister has own ride home does not expect to need servies when dcd
[2023-10-19] MEDS: Melatonin 3 MG TABLET 6 MG PO (21:39)
[2023-10-20] VITALS (10 sets, daily range): BP systolic 99–137; BP diastolic 51–83; PULSE 84–90; RESP 16–19; TEMP 36.4–37.2; O2SAT 95–98
--- NOTE | 2023-10-20 01:00 | CONS_ITS ---
DATE OF SERVICE: 10/19/2023 REFERRING PHYSICIAN: Dr. Torres REASON FOR CONSULTATION: Enteritis. HISTORY OF PRESENT ILLNESS: The patient is a 68-year-old man who was admitted to the hospital after presenting to the emergency room today with complaints of abdominal pain. He describes 3-4 months of left sided abdominal pain, and has a history of colon cancer, which was treated with chemotherapy in [place]. He also underwent a loop ileostomy apparently for obstruction. He stopped chemotherapy, because of side effects in June of this year. He states, he last underwent colonoscopy in December 2022, when his colon cancer was diagnosed. Apparently this was not resected. In the emergency department, he was evaluated with laboratory studies and imaging studies, which were reviewed. He has also been seen in consultation by General Surgery and Oncology. CT scanning was interpreted as showing diffuse mural thickening involving the descending sigmoid colon and the rectum, consistent with proctocolitis. He also had some changes with mural thickening involving the distal ileum segment thought to be due to enteritis. This was thought to cause moderate proximal small-bowel obstruction with air-fluid levels and General Surgery was consulted. He has not had obstructive symptoms with vomiting and reports ileostomy output is at baseline. PAST MEDICAL HISTORY: 1. Colon cancer as above. 2. BPH. CURRENT MEDICATIONS: Current medication list is reviewed in the chart. ALLERGIES: THERE ARE NONE REPORTED. FAMILY HISTORY: This is reviewed with the patient and is negative for GI malignancy. SOCIAL HISTORY: There is no current tobacco, alcohol, or substance abuse. REVIEW OF SYSTEMS: SKIN: No pruritus. HEENT: Negative. CARDIOPULMONARY: He denies shortness of breath or chest pain. GASTROINTESTINAL: As above. GENITOURINARY: He has been having difficulty with urination and had a Holguin catheter placed. NEUROPSYCHIATRIC: Negative. PHYSICAL EXAMINATION: GENERAL: Shows a pleasant male, lying comfortably in bed. VITAL SIGNS: Reviewed in the electronic medical record and are stable. SKIN: Anicteric. HEENT: Shows no scleral icterus. NECK: Without lymphadenopathy or thyromegaly. LUNGS: Clear. HEART: Shows a regular rate and rhythm. S1, S2. No murmur. ABDOMEN: Soft without focal masses. There is no tenderness or guarding. EXTREMITIES: Without edema. Stool testing for infectious pathogens are pending. C diff testing has been negative. IMPRESSION: Enteritis. He does appear to have an acute enteritis based on his imaging studies. Stool testing is pending. I would also obtain stool for ova and parasites, pending these results, he may benefit from lower GI tract endoscopy to reassess the colon cancer. Thanks for asking me to see him. I will follow him in the hospital with you. MD ROBERT Ramsay/RICKI / [phone]
[2023-10-20] MEDS: Morphine Sulfate 4 MG/ML CARTRIDGE IVPUSH ×3 (03:38→21:06)
[2023-10-20 07:08] LABS: Anion Gap 15 (12-20); Blood Urea Nitrogen 15 mg/dL (9-16); Calcium 9.9 mg/dL (8.4-10.2); Carbon Dioxide 24 mmol/L (22-29); Chloride 103 mmol/L (96-108); Creatinine Clr Calc Pharmacy 68.5; Estimated Glomerular Filt Rate > 60; Glucose Random 119 mg/dL (60-115); Potassium 4.2 mmol/L (3.3-5.1); Sodium 138 mmol/L (135-145)
[2023-10-20 07:17] LABS: Campylobacter Not Detected (Not Detect.); E. coli EAEC Not Detected (Not Detect.); E. coli EPEC Not Detected (Not Detect.); E. coli ETEC Not Detected (Not Detect.); Plesiomonas shigelloides Not Detected (Not Detect.); Salmonella Not Detected (Not Detect.); Vibrio Not Detected (Not Detect.); Vibrio Cholerae Not Detected (Not Detect.); Yersinia enterocolitica Not Detected (Not Detect.)
[2023-10-20 07:18] LABS: Adenovirus F 40/41 Not Detected (Not Detect.); Astrovirus Not Detected (Not Detect.); Cryptosporidium Not Detected (Not Detect.); Cyclospora cayetanensis Not Detected (Not Detect.); E. coli STEC Not Detected (Not Detect.); Entamoeba histolytica Not Detected (Not Detect.); Giardia lamblia Not Detected (Not Detect.); Norovirus GI/GII Not Detected (Not Detect.); Rotavirus A Not Detected (Not Detect.); Sapovirus Not Detected (Not Detect.); Shigella sp./EIEC Not Detected (Not Detect.)
--- NOTE | 2023-10-20 07:52 | PC.NURSE ---
Patient admitted from the ED around 2114. Patient is AAOX4. RLQ colostomy bag in place. SPC draining yellow urine. Patient c/o tranverse abdominal pain 08/16. Medicated twice with 4 mg iv morphine with good relief. Patient is oriented to unit routine, bed control, call light, tv, tel, bathroom etc. Questions and concerns addressed. Patient verbalized understanding.
--- NOTE | 2023-10-20 08:31 | PM.PNGS ---
Subjective Subjective Date of Service: 10/20/23 Interval history: Describes some pain on the left side and pelvis No nausea or vomiting Stoma functioning Physical Exam Vital Signs: Vital Signs: Last Vital Signs Temp 97.6 F 10/20/23 07:43 Pulse 84 10/20/23 07:43 Resp 19 10/20/23 08:00 BP 114/68 10/20/23 07:43 Pulse Ox 98 10/20/23 07:43 O2 Del Method Room Air 10/20/23 07:43 BMI result Body Mass Index 20.5 Const: General: comfortable and no acute distress Resp: Effort & Inspection: normal respiratory effort Cardio: Rate: regular rate GI: Other: Stoma with output Palpation (GI): Soft to palpation, not firm, Tenderness to palpation present (GI) (On lower abdomen) and no guarding Objective Data Active Medications Acetaminophen (Acetaminophen 325 Mg Tablet) 650 mg PO Q6H PRN PRN Reason: Pain, Mild (Pain Scale 1-3), fever or headache Calcium Carbonate (Calcium Carbonate 750 Mg Tab.Chew) 750 mg PO Q4H PRN PRN Reason: Heartburn Last Admin: 10/19/23 18:53 Dose: 750 mg Documented By: BROWN Enoxaparin Sodium (Enoxaparin Sodium 40 Mg/0.4 Ml Syringe) 40 mg SUBCUT Q24H [facility] Last Admin: 10/19/23 09:49 Dose: 40 mg Documented By: BROWN Magnesium Hydroxide (Milk Of Magnesia 30 Ml Oral.Susp) 30 ml PO DAILY PRN PRN Reason: Constipation Melatonin (Melatonin 3 Mg Tablet) 6 mg PO BEDTIME PRN PRN Reason: Insomnia Last Admin: 10/19/23 21:39 Dose: 6 mg Documented By: ADALID Morphine Sulfate (Morphine Sulfate 4 Mg/Ml Cartridge) 4 mg IVPUSH Q6H PRN; Protocol PRN Reason: Pain, Severe (Pain Scale 7-10) Last Admin: 10/20/23 03:38 Dose: 4 mg Documented By: ADALID Ondansetron HCl (Ondansetron Hcl 4 Mg/2 Ml Vial) 4 mg IVPUSH Q8H PRN PRN Reason: Nausea and Vomiting Last Admin: 10/19/23 09:50 Dose: 4 mg Documented By: BROWN Sodium Chloride (0.9 % Sodium Chloride Flush 3 Ml Syringe) 3 ml IVFLUSH QSHIFT [facility] TO [facility] Last Admin: 10/19/23 23:43 Dose: 3 ml Documented By: ADALID Tamsulosin HCl (Tamsulosin Hcl 0.4 Mg Capsule) 0.4 mg PO BEDTIME [facility] Last Admin: 10/19/23 21:39 Dose: 0.4 mg Documented By: ADALID Labs 10/19/23 05:30 10/20/23 06:26 Labs: Laboratory Results - last 24 hr 10/19/23 10/19/23 10/20/23 10:35 13:06 06:26 Anion Gap 15 Estim Creat Clear Calc 68.5 Estimated GFR > 60 Random Glucose 119 H Calcium 9.9 Carcinoembryonic Ag 880.10 Stl C. cayetanensis PCR Not Detected Stool Rotavirus A PCR Not Detected Stl Adenov F 40/41 PCR Not Detected Stool Astrovirus (PCR) Not Detected Stool Campylobacter PCR Not Detected Stool Cryptosporidium PCR Not Detected Stl Sh Tox Pr E STEC PCR Not Detected Stool E coli O157 PCR Not applicable Stl Enterotoxigenic E PCR Not Detected Stool EPEC (PCR) Not Detected Stool EAEC (PCR) Not Detected Stl E. histolytica PCR Not Detected Stool Giardia Lamblia PCR Not Detected Stl P. shigelloides PCR Not Detected Stool Salmonella PCR Not Detected Stool Sapovirus (PCR) Not Detected Stl Shigella/EIEC PCR Not Detected St Y.enterocolitica PCR Not Detected Stool Vibrio (PCR) Not Detected Stl Vibrio cholerae PCR Not Detected Stl Norovirus GI/GII PCR Not Detected Procedures Date of Service Date of Service: 10/20/23 Progress Note: A&P Assessment and plan (1) Enteritis: Status: Acute Assessment and Plan: We will need reevaluation of rectal cancer diagnosed last year Best to be able to retrieve records from [place] if available We will need repeat colonoscopy, MRI down the line Abdomen is soft and benign Clinically not obstructed CEA level 880 - c/w diagnosis of rectal cancer Time Spent With Patient Time: Total time managing care of this patient today ____ minutes. Quality Stroke Does the patient have a stroke diagnosis?: No VTE Prior VTE?: No VTE Risk Level:: Medical - moderate - high VTE Device Contraindication: Treatment Not Indicated VTE Drug Contraindication: N/A - Med Ordered
--- NOTE | 2023-10-20 09:10 | P.PNGI_ITS ---
Subjective Subjective Date of Service: 10/20/23 Interval History: c/o bilateral lower quadrant pain Critical Care Time (minutes): 0 Physical Exam 2 Vital Signs: Vital Signs: Last Vital Signs Temp 97.6 F 10/20/23 07:43 Pulse 84 10/20/23 07:43 Resp 19 10/20/23 08:00 BP 114/68 10/20/23 07:43 Pulse Ox 98 10/20/23 07:43 O2 Del Method Room Air 10/20/23 07:43 BMI result Body Mass Index 20.5 Const: General: cooperative GI: Other: abdomen is soft and nontender. Objective Data Labs 10/19/23 05:30 10/20/23 06:26 Procedures Date of Service Date of Service: 10/20/23 Progress Note: A&P Assessment and plan (1) Enteritis: Status: Acute Assessment and Plan: stool testing negative so far colonoscopy planned for later today for evaluation. Risks and benefits discussed with patient via cotton cleaner. He understands these and agrees to proceed. Time Spent With Patient Time: Total time managing care of this patient today ____ minutes. Quality Stroke Does the patient have a stroke diagnosis?: No VTE Prior VTE?: No VTE Risk Level:: Medical - moderate - high VTE Device Contraindication: Treatment Not Indicated VTE Drug Contraindication: N/A - Med Ordered
[2023-10-20] MEDS: 0.9 % Sodium Chloride Flush 3 ML SYRINGE IVFLUSH ×2 (09:44→14:59)
[2023-10-20] MEDS: Enoxaparin Sodium 40 MG/0.4 ML SYRINGE SUBCUT (09:44)
--- NOTE | 2023-10-20 09:56 | HO.PM.IMPN ---
Subjective Subjective Date of Service: 10/20/23 Interval History: This history was taken in Thai from the patient. LLQ/pelvis pain NPO for C-scope Review of Systems Review of Systems: Yes all other systems are reviewed and are negative Physical Exam Vital Signs: Vital Signs: Last Vital Signs Temp 97.6 F 10/20/23 07:43 Pulse 84 10/20/23 07:43 Resp 19 10/20/23 08:00 BP 114/68 10/20/23 07:43 Pulse Ox 98 10/20/23 07:43 O2 Del Method Room Air 10/20/23 07:43 BMI result Body Mass Index 20.5 Gen: in no acute distress HEENT: sclera anicteric, moist mucus membranes Neck: supple Lungs: clear to auscultation bilaterally Heart: regular rate and rhythm, no murmurs Abd: soft, mild tenderness, nondistended, ileostomy RLQ with gas/liquid Ext: no edema Skin: warm/well-perfused Neuro: alert and oriented x3, no focal findings Psych: appropriate affect Objective Data Active Medications Acetaminophen (Acetaminophen 325 Mg Tablet) 650 mg PO Q6H PRN PRN Reason: Pain, Mild (Pain Scale 1-3), fever or headache Calcium Carbonate (Calcium Carbonate 750 Mg Tab.Chew) 750 mg PO Q4H PRN PRN Reason: Heartburn Last Admin: 10/19/23 18:53 Dose: 750 mg Documented By: BROWN Enoxaparin Sodium (Enoxaparin Sodium 40 Mg/0.4 Ml Syringe) 40 mg SUBCUT Q24H [facility] Last Admin: 10/19/23 09:49 Dose: 40 mg Documented By: BROWN Magnesium Hydroxide (Milk Of Magnesia 30 Ml Oral.Susp) 30 ml PO DAILY PRN PRN Reason: Constipation Melatonin (Melatonin 3 Mg Tablet) 6 mg PO BEDTIME PRN PRN Reason: Insomnia Last Admin: 10/19/23 21:39 Dose: 6 mg Documented By: ADALID Morphine Sulfate (Morphine Sulfate 4 Mg/Ml Cartridge) 4 mg IVPUSH Q6H PRN; Protocol PRN Reason: Pain, Severe (Pain Scale 7-10) Last Admin: 10/20/23 03:38 Dose: 4 mg Documented By: ADALID Ondansetron HCl (Ondansetron Hcl 4 Mg/2 Ml Vial) 4 mg IVPUSH Q8H PRN PRN Reason: Nausea and Vomiting Last Admin: 10/19/23 09:50 Dose: 4 mg Documented By: BROWN Sodium Chloride (0.9 % Sodium Chloride Flush 3 Ml Syringe) 3 ml IVFLUSH QSHIFT [facility] Last Admin: 10/20/23 09:44 Dose: 3 ml Documented By: CONSTANTINO Tamsulosin HCl (Tamsulosin Hcl 0.4 Mg Capsule) 0.4 mg PO BEDTIME [facility] Last Admin: 10/19/23 21:39 Dose: 0.4 mg Documented By: ADALID Labs 10/19/23 05:30 10/20/23 06:26 Labs: Laboratory Results - last 24 hr 10/19/23 10/19/23 10/20/23 10:35 13:06 06:26 Anion Gap 15 Estim Creat Clear Calc 68.5 Estimated GFR > 60 Random Glucose 119 H Calcium 9.9 Carcinoembryonic Ag 880.10 Stl C. cayetanensis PCR Not Detected Stool Rotavirus A PCR Not Detected Stl Adenov F 40/41 PCR Not Detected Stool Astrovirus (PCR) Not Detected Stool Campylobacter PCR Not Detected Stool Cryptosporidium PCR Not Detected Stl Sh Tox Pr E STEC PCR Not Detected Stool E coli O157 PCR Not applicable Stl Enterotoxigenic E PCR Not Detected Stool EPEC (PCR) Not Detected Stool EAEC (PCR) Not Detected Stl E. histolytica PCR Not Detected Stool Giardia Lamblia PCR Not Detected Stl P. shigelloides PCR Not Detected Stool Salmonella PCR Not Detected Stool Sapovirus (PCR) Not Detected Stl Shigella/EIEC PCR Not Detected St Y.enterocolitica PCR Not Detected Stool Vibrio (PCR) Not Detected Stl Vibrio cholerae PCR Not Detected Stl Norovirus GI/GII PCR Not Detected Assessment and Plan (1) Small bowel obstruction: Status: Acute (2) Colon cancer: Status: Acute Plan d2 68yo M with colorectal CA s/p ileostomy [intolerant of chemotherapy], BPH presenting with abd pain; admitted for enteritis/pSBO but likely has recurrence/progression of colorectal CA enteritis/pSBO - Surgery consulted, has good ileostomy output without abd distention, stool studies negative, will advance diet to regular after colonoscopy colon CA - CEA 880+, colonoscopy today with biopsies, outpatient follow-up with Dr Sanchez, needs records from [place] BPH with urinary retention - Holguin placed, started tamsulosin VTE ppx - hold enoxaparin for biopsy; place SCDs dispo - eventual home In my clinical judgment, the patient requires continued hospitalization for the following reasons: colonoscopic evaluation Total time managing care of this patient today: 45 minutes. Quality Stroke Does the patient have a stroke diagnosis?: No VTE Prior VTE?: No VTE Risk Level:: Medical - moderate - high VTE Device Contraindication: Treatment Not Indicated VTE Drug Contraindication: N/A - Med Ordered
--- NOTE | 2023-10-20 10:25 | P.CONAN_ITS ---
HPI - Anesthesia Eval Consult details Narrative: sigmoidoscopy/colon screen PMF Active Problems Active Problems: All Active Problems Difficulty urinating (Acute) BPH (benign prostatic hyperplasia) (Acute) Colon cancer (Acute) Small bowel obstruction (Acute) Enteritis (Acute) Abdominal pain (Acute) Past Medical History Medical History BPH (benign prostatic hyperplasia) Colon cancer Family History Family history of problems with anesthesia: No Surgical History Surgical History History of ileostomy History of Problems with Anesthesia: No Social History Social History Household Members: Family Housing: Apartment Do you presently have visiting nurse or other home services: No Patient Tobacco Use Status: Never used Tobacco Second Hand Smoke Exposure: No service: No Meds Allergies Allergy/AdvReac Type Severity Reaction Status Date / Time No Known Allergies Allergy Verified 10/18/23 15:01 Active Medications: Current Medications Acetaminophen (Acetaminophen 325 Mg Tablet) 650 mg PO Q6H PRN PRN Reason: Pain, Mild (Pain Scale 1-3), fever or headache Calcium Carbonate (Calcium Carbonate 750 Mg Tab.Chew) 750 mg PO Q4H PRN PRN Reason: Heartburn Last Admin: 10/19/23 18:53 Dose: 750 mg Enoxaparin Sodium (Enoxaparin Sodium 40 Mg/0.4 Ml Syringe) 40 mg SUBCUT Q24H KAEL Last Admin: 10/20/23 09:44 Dose: 40 mg Magnesium Hydroxide (Milk Of Magnesia 30 Ml Oral.Susp) 30 ml PO DAILY PRN PRN Reason: Constipation Melatonin (Melatonin 3 Mg Tablet) 6 mg PO BEDTIME PRN PRN Reason: Insomnia Last Admin: 10/19/23 21:39 Dose: 6 mg Morphine Sulfate (Morphine Sulfate 4 Mg/Ml Cartridge) 4 mg IVPUSH Q6H PRN; Protocol PRN Reason: Pain, Severe (Pain Scale 7-10) Last Admin: 10/20/23 03:38 Dose: 4 mg Ondansetron HCl (Ondansetron Hcl 4 Mg/2 Ml Vial) 4 mg IVPUSH Q8H PRN PRN Reason: Nausea and Vomiting Last Admin: 10/19/23 09:50 Dose: 4 mg Sodium Chloride (0.9 % Sodium Chloride Flush 3 Ml Syringe) 3 ml IVFLUSH QSHIFT [facility] Last Admin: 10/20/23 09:44 Dose: 3 ml Tamsulosin HCl (Tamsulosin Hcl 0.4 Mg Capsule) 0.4 mg PO BEDTIME [facility] Last Admin: 10/19/23 21:39 Dose: 0.4 mg Home Medications ?Medication ?Instructions ?Recorded ?Confirmed ?Last Taken ?Type tamsulosin 0.4 mg capsule 0.4 mg PO BEDTIME 10/19/23 10/19/23 10/18/23 History tramadol 37.5 mg-acetaminophen 325 2 tab PO Q6H PRN Pain 10/19/23 10/19/23 10/18/23 History mg tablet Exam Height,Weight and Vital Signs: Height 5 ft 6 in Weight 57.5 kg Last Vital Signs Temp 97.6 F 10/20/23 07:43 Pulse 84 10/20/23 07:43 Resp 19 10/20/23 08:00 BP 114/68 10/20/23 07:43 Pulse Ox 98 10/20/23 07:43 O2 Del Method Room Air 10/20/23 07:43 Pertinent Lab Results Pertinent Lab Results: Laboratory Tests 10/18/23 10/18/23 10/19/23 14:42 16:14 00:22 WBC 10.8 RBC 4.22 L Hgb 13.2 L Hct 39.5 L MCV 93.6 MCH 31.3 MCHC 33.4 RDW 14.0 Plt Count 309 MPV 7.9 L Immature Gran % (Auto) 0.3 Neut % (Auto) 82.8 H Lymph % (Auto) 8.5 L [place] % (Auto) 7.0 Eos % (Auto) 1.0 Baso % (Auto) 0.4 Lymph # (Auto) 0.9 L [place] # (Auto) 0.8 Eos # (Auto) 0.1 Baso # (Auto) 0.0 Abs Immat Gran (auto) 0.03 Absolute Neuts (auto) 8.9 H Absolute Nucleated RBC 0.000 Nucleated RBC % (auto) 0.0 Sodium 139 Potassium 3.9 Chloride 102 Carbon Dioxide 28 Anion Gap 13 BUN 11 Creatinine 0.84 Estim Creat Clear Calc 69.4 Estimated GFR > 60 Random Glucose 116 H Lactic Acid 1.3 Calcium 10.6 H D Total Bilirubin 0.3 Direct Bilirubin 0.1 AST 29 ALT 18 Alkaline Phosphatase 73 Total Protein 8.4 H Albumin 4.5 Lipase 31 Carcinoembryonic Ag Urine Color Dark Yellow Urine Appearance Clear Urine pH 6.5 Ur Specific Hawkins 1.020 Urine Protein Trace Urine Glucose (UA) Negative Urine Ketones Trace Urine Blood Negative Urine Nitrite Negative Ur Leukocyte Esterase Negative Urine RBC 0-2 Urine WBC 0-5 Ur Squamous Epith Cells 0-2 Urine Bacteria None Seen Hyaline Casts 0-2 Stl C. cayetanensis PCR Stool Rotavirus A PCR Stl Adenov F PCR Stool Astrovirus (PCR) Stool Campylobacter PCR Stool Cryptosporidium PCR Stl Sh Tox Pr E STEC PCR Stool E coli O157 PCR Stl Enterotoxigenic E PCR Stool EPEC (PCR) Stool EAEC (PCR) Stl E. histolytica PCR Stool Giardia Lamblia PCR Stl P. shigelloides PCR Stool Salmonella PCR Stool Sapovirus (PCR) Stl Shigella/EIEC PCR St Y.enterocolitica PCR Stool Vibrio (PCR) Stl Vibrio cholerae PCR Stl Norovirus GI/GII PCR C. difficile Tox B Gene 10/19/23 10/19/23 10/19/23 00:57 05:30 10:35 WBC 10.0 RBC 3.87 L Hgb 12.1 L Hct 36.5 L MCV 94.3 MCH 31.3 MCHC 33.2 RDW 14.2 Plt Count 304 MPV 8.3 L Immature Gran % (Auto) 0.1 Neut % (Auto) 79.9 H Lymph % (Auto) 7.2 L [place] % (Auto) 11.4 H Eos % (Auto) 0.9 Baso % (Auto) 0.5 Lymph # (Auto) 0.7 L [place] # (Auto) 1.1 Eos # (Auto) 0.1 Baso # (Auto) 0.1 Abs Immat Gran (auto) 0.01 Absolute Neuts (auto) 8.0 Absolute Nucleated RBC 0.000 Nucleated RBC % (auto) 0.0 Sodium 140 Potassium 4.4 Chloride 105 Carbon Dioxide 25 Anion Gap 14 BUN 14 Creatinine 0.90 Estim Creat Clear Calc 64.7 Estimated GFR > 60 Random Glucose 131 H Lactic Acid Calcium 9.7 D Total Bilirubin Direct Bilirubin AST ALT Alkaline Phosphatase Total Protein Albumin Lipase Carcinoembryonic Ag 880.10 Urine Color Urine Appearance Urine pH Ur Specific Hawkins Urine Protein Urine Glucose (UA) Urine Ketones Urine Blood Urine Nitrite Ur Leukocyte Esterase Urine RBC Urine WBC Ur Squamous Epith Cells Urine Bacteria Hyaline Casts Stl C. cayetanensis PCR Stool Rotavirus A PCR Stl Adenov F PCR Stool Astrovirus (PCR) Stool Campylobacter PCR Stool Cryptosporidium PCR Stl Sh Tox Pr E STEC PCR Stool E coli O157 PCR Stl Enterotoxigenic E PCR Stool EPEC (PCR) Stool EAEC (PCR) Stl E. histolytica PCR Stool Giardia Lamblia PCR Stl P. shigelloides PCR Stool Salmonella PCR Stool Sapovirus (PCR) Stl Shigella/EIEC PCR St Y.enterocolitica PCR Stool Vibrio (PCR) Stl Vibrio cholerae PCR Stl Norovirus GI/GII PCR C. difficile Tox B Gene NEGATIVE 10/19/23 10/20/23 13:06 06:26 WBC RBC Hgb Hct MCV MCH MCHC RDW Plt Count MPV Immature Gran % (Auto) Neut % (Auto) Lymph % (Auto) [place] % (Auto) Eos % (Auto) Baso % (Auto) Lymph # (Auto) [place] # (Auto) Eos # (Auto) Baso # (Auto) Abs Immat Gran (auto) Absolute Neuts (auto) Absolute Nucleated RBC Nucleated RBC % (auto) Sodium 138 Potassium 4.2 Chloride 103 Carbon Dioxide 24 Anion Gap 15 BUN 15 Creatinine 0.85 Estim Creat Clear Calc 68.5 Estimated GFR > 60 Random Glucose 119 H Lactic Acid Calcium 9.9 Total Bilirubin Direct Bilirubin AST ALT Alkaline Phosphatase Total Protein Albumin Lipase Carcinoembryonic Ag Urine Color Urine Appearance Urine pH Ur Specific Hawkins Urine Protein Urine Glucose (UA) Urine Ketones Urine Blood Urine Nitrite Ur Leukocyte Esterase Urine RBC Urine WBC Ur Squamous Epith Cells Urine Bacteria Hyaline Casts Stl C. cayetanensis PCR Not Detected Stool Rotavirus A PCR Not Detected Stl Adenov PCR Not Detected Stool Astrovirus (PCR) Not Detected Stool Campylobacter PCR Not Detected Stool Cryptosporidium PCR Not Detected Stl Sh Tox Pr E STEC PCR Not Detected Stool E coli O157 PCR Not applicable Stl Enterotoxigenic E PCR Not Detected Stool EPEC (PCR) Not Detected Stool EAEC (PCR) Not Detected Stl E. histolytica PCR Not Detected Stool Giardia Lamblia PCR Not Detected Stl P. shigelloides PCR Not Detected Stool Salmonella PCR Not Detected Stool Sapovirus (PCR) Not Detected Stl Shigella/EIEC PCR Not Detected St Y.enterocolitica PCR Not Detected Stool Vibrio (PCR) Not Detected Stl Vibrio cholerae PCR Not Detected Stl Norovirus GI/GII PCR Not Detected C. difficile Tox B Gene Airway Mallampati Class: II TM Dist: >3cm Neck ROM: Full Heart: rrr Lungs: cta Assessment and Plan Assessment Anesthesia Assessment: Anesthesia Plan Discussed Final Anesthetic Review Family History of Problems with Anesthesia: No History of Problems with Anesthesia: No NPO: Yes ASA Class: III Final Preanesthetic Review: No Changes in Pt Med Stat, Meds/Allgs Chart Reviewed, Consent Obtained/Reviewed and Anes Risks/Benef Reviewed Patient Risk: Intermediate Procedure Risk: Low Anesthetic Plan Anesthetic Plan: GA and MAC: Disposition: Standard PACU
[2023-10-20] MEDS: Sodium Phosphate,Mono-Dibasic 133 ML ENEMA PR (11:28)
--- NOTE | 2023-10-20 12:22 | PM.OP ---
Brief Operative Note Date of Service: 10/20/23 Pre-op diagnosis: colon cancer Post-op diagnosis: same (rectal cancer) Surgeon: Flynn Mixon MD Anesthesia: MAC Was an Hazardous Material Specialist used for this Procedure?: No Estimated blood loss (mL): 10 Pathology: other Condition: stable Disposition: PACU
--- NOTE | 2023-10-20 12:23 | PM.EVENT ---
Event Note Date of Service: 10/20/23 Event Note: Flex sig Large friable necrotic rectal tumor, obstructing the rectal lumen. Tumor extends to within 3cm of anal sphincter. Unable to pass scope beyond the tumor or retroflex Biopsies obtained. Time Spent With Patient Time: Total time managing care of this patient today ____ minutes.
--- NOTE | 2023-10-20 13:12 | OP_ITS ---
DATE OF SERVICE: 10/20/2023 SURGEON: Flynn Mixon MD INDICATIONS: Colon cancer. PREOPERATIVE DIAGNOSIS: POSTOPERATIVE DIAGNOSIS: PROCEDURE PERFORMED: Flexible sigmoidoscopy with biopsy. ESTIMATED BLOOD LOSS: COMPLICATIONS: ANESTHESIA: Monitored anesthesia care. ASSISTANTS: SPECIMENS: DESCRIPTION OF PROCEDURE: A history and physical was performed. The risks and benefits of the procedure were explained to the patient and informed consent was obtained. The patient was placed in the left lateral decubitus position. A digital rectal exam was performed. There was a rectal mass palpable within 3 cm of the anal sphincter. The Olympus pediatric video colonoscope was advanced into the rectum. The scope could not be advanced by the lesion. There was a large obstructing necrotic rectal mass, which was quite friable and blood with instrumentation. This was irrigated. Multiple biopsies were obtained. There appear to be a possible pinpoint lumen, did not permit passage of the scope. Retroflexed examination was not possible. IMPRESSION: Rectal cancer. RECOMMENDATION: Follow up the biopsy results. MD ROBERT Ramsay/ANGELAL / [id number]
[2023-10-20] MEDS: Tamsulosin HCL 0.4 MG CAPSULE PO (21:06)
[2023-10-20] MEDS: Melatonin 3 MG TABLET 6 MG PO (21:06)
[2023-10-21] MEDS: 0.9 % Sodium Chloride Flush 3 ML SYRINGE IVFLUSH ×2 (00:45→09:40)
[2023-10-21 03:05] VITALS: BP 147/73; PULSE 83; RESP 18; TEMP 36.4; O2SAT 97
[2023-10-21] MEDS: Morphine Sulfate 4 MG/ML CARTRIDGE IVPUSH ×2 (03:36→09:39)
--- NOTE | 2023-10-21 05:39 | PC.NURSE ---
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 Patient remains AAOX4 with intermittent c/o of lower abdominal and pelvic pain relieved with 4 mg iv morphine given x2 during the shift. LLQ Colostomy intact. Holguin catheter draining alberto urine. Patient encouraged to drink more fluids. Patient appears to be anxious about the course of treatment during this hospitalization. He is not sure what the next steps are. RN acknowledged his feelings and will make sure those concerns are able to reach the medical team. VSS. No signs of acute distress noted.
[2023-10-21 07:30] VITALS: BP 135/74; PULSE 89; RESP 18; TEMP 36.6; O2SAT 98
--- NOTE | 2023-10-21 07:57 | P.PNGS_ITS ---
Subjective Subjective Date of Service: 10/21/23 Interval history: Says he feels much better this morning Abdominal pain much improved Stoma functioning well Had sigmoidoscopy yesterday Physical Exam 2 Vital Signs: Vital Signs: Last Vital Signs Temp 97.8 F 10/21/23 07:30 Pulse 89 10/21/23 07:30 Resp 18 10/21/23 07:30 BP 135/74 10/21/23 07:30 Pulse Ox 98 10/21/23 07:30 O2 Del Method Room Air 10/21/23 07:30 O2 Flow Rate 4 10/20/23 15:52 BMI result Body Mass Index 20.5 Const: General: comfortable and no acute distress Resp: Effort & Inspection: normal respiratory effort Cardio: Rate: regular rate GI: Other: Stoma functioning well Palpation (GI): Soft to palpation, not firm, Tenderness to palpation present (GI) (Much less tenderness) and no guarding Objective Data Active Medications Acetaminophen (Acetaminophen 325 Mg Tablet) 650 mg PO Q6H PRN PRN Reason: Pain, Mild (Pain Scale 1-3), fever or headache Calcium Carbonate (Calcium Carbonate 750 Mg Tab.Chew) 750 mg PO Q4H PRN PRN Reason: Heartburn Last Admin: 10/19/23 18:53 Dose: 750 mg Documented By: BROWN Enoxaparin Sodium (Enoxaparin Sodium 40 Mg/0.4 Ml Syringe) 40 mg SUBCUT Q24H KAEL Last Admin: 10/20/23 09:44 Dose: 40 mg Documented By: CONSTANTINO Fentanyl (Fentanyl Citrate/Pf 100 Mcg/2 Ml Vial) 50 mcg IVPUSH Q5M PRN; Protocol PRN Reason: Pain, Moderate or severe Magnesium Hydroxide (Milk Of Magnesia 30 Ml Oral.Susp) 30 ml PO DAILY PRN PRN Reason: Constipation Melatonin (Melatonin 3 Mg Tablet) 6 mg PO BEDTIME PRN PRN Reason: Insomnia Last Admin: 10/20/23 21:06 Dose: 6 mg Documented By: ADALID Morphine Sulfate (Morphine Sulfate 4 Mg/Ml Cartridge) 4 mg IVPUSH Q6H PRN; Protocol PRN Reason: Pain, Severe (Pain Scale 7-10) Last Admin: 10/21/23 03:36 Dose: 4 mg Documented By: ADALID Naloxone HCl (Naloxone Hcl 0.4 Mg/Ml Vial) 0.04 mg IVPUSH Q5M PRN PRN Reason: Excessive sedation or RR < 8 Ondansetron HCl (Ondansetron Hcl 4 Mg/2 Ml Vial) 4 mg IVPUSH Q8H PRN PRN Reason: Nausea and Vomiting Last Admin: 10/19/23 09:50 Dose: 4 mg Documented By: BROWN Sodium Chloride (0.9 % Sodium Chloride Flush 3 Ml Syringe) 3 ml IVFLUSH QSHIFT [facility] Last Admin: 10/21/23 00:45 Dose: 3 ml Documented By: ADALID Tamsulosin HCl (Tamsulosin Hcl 0.4 Mg Capsule) 0.4 mg PO BEDTIME [facility] Last Admin: 10/20/23 21:06 Dose: 0.4 mg Documented By: ADALID Labs 10/19/23 05:30 10/20/23 06:26 Procedures Date of Service Date of Service: 10/21/23 Progress Note: A&P Assessment and plan (1) Rectal cancer: Status: Acute Assessment and Plan: Sigmoidoscopy yesterday - obstructing, bulky cancer in the distal rectum consistent with history He had not completed therapy he would benefit from radiation treatment Oncology input Stoma otherwise with good function Clear liquids and advance as tolerated Time Spent With Patient Time: Total time managing care of this patient today ____ minutes. Quality Stroke Does the patient have a stroke diagnosis?: No VTE Prior VTE?: No VTE Risk Level:: Medical - moderate - high VTE Device Contraindication: Treatment Not Indicated VTE Drug Contraindication: N/A - Med Ordered
[2023-10-21] MEDS: Enoxaparin Sodium 40 MG/0.4 ML SYRINGE SUBCUT (08:37)
[2023-10-21] MEDS: Acetaminophen 325 MG TABLET 650 MG PO (08:37)
--- NOTE | 2023-10-21 10:29 | P.DS_ITS ---
DS: Providers Provider Date of Service: 10/21/23 Date of admission: 10/19/23 10:29 Date of discharge: 10/21/23 Primary care physician: Unknown Physician Consults: 10/19/23 01:15 Consult to General Surgery Routine Consulting Provider: [facility] General Surgeons Reason for consultation: SBO 10/19/23 11:50 Consult to Hematology / Oncology Routine Consulting Provider: [facility] Oncology/Hematology Reason for consultation: colon CA- radiation? 10/19/23 13:38 Consult to Gastroenterology Routine Consulting Provider: [facility] Reason for consultation: residual CA/recurrence? rectosigmoid area -> sigmoidoscopy? DS: Diagnosis Discharge Diagnosis (1) Rectal cancer: Status: Acute (2) Difficulty urinating: Status: Acute (3) BPH (benign prostatic hyperplasia): Status: Acute (4) Cancer associated pain: Status: Acute DS: Summary Hospital Course Hospital Course: From the history and physical by the admitting hospitalist, Naomie Currie MD, 10/19/23: This is a 68-year-old male with pertinent history of colon cancer status post colostomy, BPH who presents to the emergency department for evaluation of abdominal pain. Patient states he stopped chemotherapy in June of 2023 as he could not tolerate chemotherapy. Patient is supposed to take a medication for his enlarged prostate but is not taking it. Patient is complaining of lower abdominal discomfort that has been ongoing for a while but worsened on the day of presentation, constant, nonradiating and without any relieving factors. Patient tried Tylenol and tramadol at home but no relief. Also had difficulty with urination. Denies nausea or vomiting. Reduced p.o. intake due to abdominal pain. Patient is visiting from [place]. No chest pain, palpitations, shortness of breath. In the emergency department, imaging with enteritis. Also concerning for small bowel obstruction. Holguin catheter was placed in the ER. 8yo M with colorectal CA s/p ileostomy [intolerant of chemotherapy], BPH presenting with abd pain; admitted for enteritis/pSBO but over the course of his admission, it was clear that his symptoms were actually due to recurrence/progression of colorectal CA. General Surgery, Gastroenterology, and Oncology were consulted. He had good ileostomy output without abdominal distension and stool studies were negative. CEA was 880+ and he underwent flexible sigmoidocopy on 10/19, which demonstrated a large friable necrotic rectal tumor obstructing the rectal lumen. The tumor extends to within 3cm of anal sphincter and Dr Mixon was unable to pass scope beyond the tumor. Biopsies were done. His diet was advanced and he was discharged home with instructions to follow up with Dr Sanchez at [facility] Oncology on 11/07/23 at 10:20am. A staging PET/CT will be done in 2 weeks. He was discharged on oxycodone for analgesia. Time Attestation Discharge Coordination Time (in mins): 45 Quality: Safe Use of Opioids Does Pt have an Active Cancer Diagnosis on the Problem List?: Yes Opioid Measure Date for [facility] Report: 09/21/23 Opioid Measure Time for [facility] Report: 14:28 Quality: Stroke Does the patient have a stroke diagnosis?: No Physical Exam Vital Signs: Vital Signs: Last Vital Signs Temp 97.8 F 10/21/23 07:30 Pulse 89 10/21/23 07:30 Resp 18 10/21/23 07:30 BP 135/74 10/21/23 07:30 Pulse Ox 98 10/21/23 07:30 O2 Del Method Room Air 10/21/23 07:30 O2 Flow Rate 4 10/20/23 15:52 BMI result Body Mass Index 20.5 Gen: in no acute distress HEENT: sclera anicteric, moist mucus membranes Neck: supple Lungs: clear to auscultation bilaterally Heart: regular rate and rhythm, no murmurs Abd: soft, mild LLQ/pelvic tenderness, nondistended, ileostomy RLQ with gas/liquid Ext: no edema Skin: warm/well-perfused Neuro: alert and oriented x3, no focal findings Psych: appropriate affect DS: Data Data Completed and Pending Completed studies during hospitalization [Text1]: Laboratory Results WBC 10.0 X10*3/uL (4.8-10.8) 10/19/23 05:30 RBC 3.87 X10*6/uL (4.60-5.80) L 10/19/23 05:30 Hgb 12.1 g/dl (14.0-18.0) L 10/19/23 05:30 Hct 36.5 % (42.0-52.0) L 10/19/23 05:30 MCV 94.3 fL (80.0-98.0) 10/19/23 05:30 MCH 31.3 pg (27.0-33.0) 10/19/23 05:30 MCHC 33.2 g/dl (31.0-36.0) 10/19/23 05:30 RDW 14.2 % (11.0-16.0) 10/19/23 05:30 Plt Count 304 X10*3/uL (160-400) 10/19/23 05:30 MPV 8.3 fL (9.4-12.4) L 10/19/23 05:30 Immature Gran % (Auto) 0.1 % (0.0-0.4) 10/19/23 05:30 Neut % (Auto) 79.9 % (45-73) H 10/19/23 05:30 Lymph % (Auto) 7.2 % (20-40) L 10/19/23 05:30 [place] % (Auto) 11.4 % (2-11) H 10/19/23 05:30 Eos % (Auto) 0.9 % (0-4) 10/19/23 05:30 Baso % (Auto) 0.5 % (0-2) 10/19/23 05:30 Lymph # (Auto) 0.7 X10*3/uL (1.2-4.9) L 10/19/23 05:30 [place] # (Auto) 1.1 X10*3/uL (0.1-1.2) 10/19/23 05:30 Eos # (Auto) 0.1 X10*3/uL (0.0-0.4) 10/19/23 05:30 Baso # (Auto) 0.1 X10*3/uL (0.0-0.2) 10/19/23 05:30 Abs Immat Gran (auto) 0.01 X10*3/uL (0.00-0.03) 10/19/23 05:30 Absolute Neuts (auto) 8.0 x10*3/uL (2.0-8.3) 10/19/23 05:30 Absolute Nucleated RBC 0.000 X10*3/uL (0.0-0.012) 10/19/23 05:30 Nucleated RBC % (auto) 0.0 /100WBC (0.0-0.2) 10/19/23 05:30 Sodium 138 mmol/L (135-145) 10/20/23 06:26 Potassium 4.2 mmol/L (3.3-5.1) 10/20/23 06:26 Chloride 103 mmol/L (96-108) 10/20/23 06:26 Carbon Dioxide 24 mmol/L (22-29) 10/20/23 06:26 Anion Gap 15 (12-20) 10/20/23 06:26 BUN 15 mg/dL (9-16) 10/20/23 06:26 Creatinine 0.85 mg/dL (0.5-1.4) 10/20/23 06:26 Estim Creat Clear Calc 68.5 10/20/23 06:26 Estimated GFR > 60 10/20/23 06:26 Random Glucose 119 mg/dL (60-115) H 10/20/23 06:26 Lactic Acid 1.3 mmol/L (0.5-2.0) 10/19/23 00:22 Calcium 9.9 mg/dL (8.4-10.2) 10/20/23 06:26 Total Bilirubin 0.3 mg/dL (0.0-1.0) 10/18/23 14:42 Direct Bilirubin 0.1 mg/dL (0.0-0.5) 10/18/23 14:42 AST 29 U/L (5-37) 10/18/23 14:42 ALT 18 U/L (0-40) 10/18/23 14:42 Alkaline Phosphatase 73 U/L (39-117) 10/18/23 14:42 Total Protein 8.4 g/dL (6.5-8.0) H 10/18/23 14:42 Albumin 4.5 g/dL (3.5-5.0) 10/18/23 14:42 Lipase 31 U/L (8-78) 10/18/23 14:42 Carcinoembryonic Ag 880.10 ng/mL 10/19/23 10:35 Urine Color Dark Yellow 10/18/23 16:14 Urine Appearance Clear 10/18/23 16:14 Urine pH 6.5 (5.0-9.0) 10/18/23 16:14 Ur Specific Lovell 1.020 (1.005-1.025) 10/18/23 16:14 Urine Protein Trace mg/dL (Neg-Trace) 10/18/23 16:14 Urine Glucose (UA) Negative mg/dL (Negative) 10/18/23 16:14 Urine Ketones Trace mg/dL (Negative) 10/18/23 16:14 Urine Blood Negative (Negative) 10/18/23 16:14 Urine Nitrite Negative (Negative) 10/18/23 16:14 Ur Leukocyte Esterase Negative (Negative) 10/18/23 16:14 Urine RBC 0-2 /HPF (0-2) 10/18/23 16:14 Urine WBC 0-5 /HPF (0-5) 10/18/23 16:14 Ur Squamous Epith Cells 0-2 /HPF (0-2) 10/18/23 16:14 Urine Bacteria None Seen (None Seen) 10/18/23 16:14 Hyaline Casts 0-2 /LPF (0-2) 10/18/23 16:14 Stl C. cayetanensis PCR Not Detected (Not Detect.) 10/19/23 13:06 Stool Rotavirus A PCR Not Detected (Not Detect.) 10/19/23 13:06 Stl Adenov F 40/41 PCR Not Detected (Not Detect.) 10/19/23 13:06 Stool Astrovirus (PCR) Not Detected (Not Detect.) 10/19/23 13:06 Stool Campylobacter PCR Not Detected (Not Detect.) 10/19/23 13:06 Stool Cryptosporidium PCR Not Detected (Not Detect.) 10/19/23 13:06 Stl Sh Tox Pr E STEC PCR Not Detected (Not Detect.) 10/19/23 13:06 Stool E coli O157 PCR Not applicable (Not Detect.) 10/19/23 13:06 Stl Enterotoxigenic E PCR Not Detected (Not Detect.) 10/19/23 13:06 Stool EPEC (PCR) Not Detected (Not Detect.) 10/19/23 13:06 Stool EAEC (PCR) Not Detected (Not Detect.) 10/19/23 13:06 Stl E. histolytica PCR Not Detected (Not Detect.) 10/19/23 13:06 Stool Giardia Lamblia PCR Not Detected (Not Detect.) 10/19/23 13:06 Stl P. shigelloides PCR Not Detected (Not Detect.) 10/19/23 13:06 Stool Salmonella PCR Not Detected (Not Detect.) 10/19/23 13:06 Stool Sapovirus (PCR) Not Detected (Not Detect.) 10/19/23 13:06 Stl Shigella/EIEC PCR Not Detected (Not Detect.) 10/19/23 13:06 St Y.enterocolitica PCR Not Detected (Not Detect.) 10/19/23 13:06 Stool Vibrio (PCR) Not Detected (Not Detect.) 10/19/23 13:06 Stl Vibrio cholerae PCR Not Detected (Not Detect.) 10/19/23 13:06 Stl Norovirus GI/GII PCR Not Detected (Not Detect.) 10/19/23 13:06 C. difficile Tox B Gene NEGATIVE (Negative) 10/19/23 00:57 Impressions Abdomen/Pelvis CT 10/18/23 17:12 IMPRESSION: Right lower quadrant ileostomy with mural thickening involving distal ileum segment likely enteritis. This causes moderate proximal small bowel obstruction with air-fluid levels. No free air or free fluid seen. There is diffuse mural thickening involving the descending, sigmoid colon and the rectum likely proctocolitis from inflammatory or infectious process. There is moderate stool distending ascending colon. Abnormal left retroperitoneal lymph nodes Fleischner guidelines were followed. Electronically signed by: Peter Byrd MD 10/18/2023 08:29 PM EDT Pending studies at discharge: Pending at discharge 10/20/23 12:19 Surgical [PTH] Routine Discharge Plan Discharge Anticipated Discharge Date/Time: 10/21/23 14:23 Patient Disposition: Home, Self-Care Discharge Diagnosis: rectal cancer cancer-associated pain Referrals: [facility]] - 1 Week Rowan Sanchez MD [Physician] - 1 Week Physician,Mauricio Mckeon [Primary Care Provider] - 1 Week Discharge Medications: New oxycodone 5 mg Tablet 5 mg PO Q4H PRN (Reason: severe pain) Qty: 18 0RF Rx Instructions: Partial Fill upon patient request. Continued tamsulosin 0.4 mg Capsule 0.4 mg PO BEDTIME Discontinued tramadol-acetaminophen 37.5-325 mg Tablet 2 tab PO Q6H PRN (Reason: Pain) Discharge Orders: Discharge Order (Routine); Ordered 10/21/23 Ordered By: Vilma Torres Diet: Advance to usual diet Activity on Discharge: As tolerated Stand Alone Forms: Patient Portal Discharge page Print Language: Azerbaijani Other Ambulatory Orders: PET CT fusion skull to thigh (Routine) Timeframe: 2 Weeks Facility: [facility] - Location: PET Scan Ordered By: Rowan Sanchez Care Plan Goals: treatment of cancer Health Concerns: rectal cancer cancer-associated pain Plan of Treatment: oxycodone 5 mg every 4 hours as needed for severe pain; acetaminophen [Tylenol] 650 mg every 6 hours as needed for mild-moderate pain follow up with Dr Rowan Sanchez [[facility] Oncology] on Tuesday11/07/23 at 10:20am. Her office will call to arrange PET/CT scan. establish primary care as soon as possible Return to the hospital if you experience recurrent or worsening symptoms. Assessment: See Discharge Summary.
--- NOTE | 2023-10-21 11:59 | MHC.CM.PN ---
Per ROUNDS discussion, Patient will be medically cleared for dc to home today, self care. Last IMM addressed on 10/19/2023.
[2023-10-21 12:13] VITALS: BP 122/73; PULSE 78; RESP 18; TEMP 36.7; O2SAT 100
--- NOTE | 2023-10-21 12:38 | PC.NURSE ---
Wilberts mcclendon was removed at 11:30 10/21/23 with no complications. Mcclendon is intact. Void trial has begun and he is due to void by 1729. Urinal at bedside
--- NOTE | 2023-10-21 13:32 | HO.POSTANES ---
Post Anesthesia Evaluation Post Anesthesia Evaluation Date of Service: 10/21/23 Vital Signs: Vital Signs Temp Pulse Resp BP Pulse Ox O2 Del Method 10/21/23 12:13 98.1 F 78 18 122/73 100 Room Air 10/21/23 10:27 Room Air 10/21/23 07:30 97.8 F 89 18 135/74 98 Room Air 10/21/23 03:05 97.5 F 83 18 147/73 H 97 Room Air Anesthesia: Monitored Mental Status: Awake Pain Control: Satisfactory Nausea/Vomiting: None Hydration: Adequate Anesthesia-Related Issues: No Anes. Related Issues
[2023-10-21] MEDS: oxyCODONE HCl Immed Release 5 MG TABLET PO (15:32)
== END 2023-10-21 16:22 | disposition home or self-care (01) | DRG 375 ==
LOC: HO.ED 10-19 01:16 → HO.EDOVER 10-19 01:19 → HO.IMC 10-19 19:37
PROVIDERS: Internal Medicine; Internal Medicine Gastroenterology; Physician Assistant Surgical; Admitting Provider Student in an Organized Health Care Education/Training Program; Emergency Provider Emergency Medicine Emergency Medical Services; Visit Provider Family Medicine
PROC: 0DJD8ZZ Inspection of Lower Intestinal Tract, Via Natural or Artificial Opening Endoscopic (ICD-10-PCS; CPT 45378; principal; 2023-10-20 12:00)
DX: C19 Malignant neoplasm of rectosigmoid junction (principal); I96 Gangrene, not elsewhere classified; Z93.2 Ileostomy status; Z91.148 Patient's other noncompliance with medication regimen for other reason; G89.3 Neoplasm related pain (acute) (chronic); N40.1 Benign prostatic hyperplasia with lower urinary tract symptoms; R33.8 Other retention of urine; Z79.899 Other long term (current) drug therapy
CPT/HCPCS: 36415; 74177; 80048; 80076; 81001; 82378; 83605; 83690; 85025; 87177; 87209; 87493; 87507; 88305; 88341; 88342; 88360; 99285; C1758; J1170; J1650; J2270; J2405; J2704; J3010; Q9967

== ENCOUNTER → 2023-10-19 01:15 | Outpatient (BNV) | payer MEDICARE, SELFPAY | PROVIDERS: Admitting Provider Student in an Organized Health Care Education/Training Program; Emergency Provider Emergency Medicine Emergency Medical Services; Visit Provider Student in an Organized Health Care Education/Training Program | DX: C20 Malignant neoplasm of rectum (principal); R39.198 Other difficulties with micturition; N40.0 Benign prostatic hyperplasia without lower urinary tract symptoms; G89.3 Neoplasm related pain (acute) (chronic) | CPT/HCPCS: 99222; 99232; 99239; 99499 ==

== ENCOUNTER → 2023-10-19 10:29 | Outpatient (BNV) | payer MEDICARE, SELFPAY | PROVIDERS: Admitting Provider Student in an Organized Health Care Education/Training Program; Emergency Provider Emergency Medicine Emergency Medical Services; Visit Provider Internal Medicine | DX: C18.9 Malignant neoplasm of colon, unspecified (principal) | CPT/HCPCS: 99223 ==

== ENCOUNTER → 2023-10-19 10:29 | Outpatient (BNV) | payer MEDICARE, SELFPAY | PROVIDERS: Admitting Provider Student in an Organized Health Care Education/Training Program; Emergency Provider Emergency Medicine Emergency Medical Services; Visit Provider Physician Assistant Surgical | DX: C20 Malignant neoplasm of rectum (principal) | CPT/HCPCS: 99222; 99232 ==